=== PATIENT | female | born 1935 | race Caucasian/White ===

== ENCOUNTER 2017-08-16 20:44 | Inpatient (IN) | payer MEDICARE, MEDICAID ==
[~2017-08-16] VITALS: Ht 157.5 cm; Wt 50.8 kg
--- NOTE | 2017-08-16 20:51 | NUR ---
PT TO ER BED 9. PT CLAIRE FROM [facility] C/O "UTI S/S". PT PLACED IN GOWN AND ON STATEMENT SERVICES REPRESENTATIVE. VSS/RESP EVEN UNLABORED/NAD NOTED/SKIN WARM AND DRY/DENIES N-V-D/ AFEBRILE/AOX4. AWAITING MD MENDEZ.
--- NOTE | 2017-08-16 20:55 | NUR ---
LAB AT BEDSIDE TO DRAW.
--- NOTE | 2017-08-16 21:04 | NUR ---
URINE SPECIMEN OBTAINE AND SENT TO THE LAB.
[2017-08-16 21:17] LABS: BASOPHILS # (AUTO) 0.1 /CMM (0.0-0.2); EOSINOPHILS # (AUTO) 0.1 /CMM (0.0-0.7); LYMPHOCYTES # (AUTO) 2.1 /CMM (0.8-4.8); PLATELET COUNT (AUTO) 300 /CMM (150-450); RDW COEFFICIENT OF VARIATION 13.8 (11.5-15.0)
[2017-08-16 21:20] LABS: BASOPHILS % (AUTO) 0.7 % (0.0-2.0); EOSINOPHILS % (AUTO) 0.9 % (0.0-6.0); HEMATOCRIT 37 % (33-45); LYMPHOCYTES % (AUTO) 19.2 % (20.0-44.0); MEAN CORPUSCULAR HEMOGLOBIN 33 PG (26.0-33.0); MEAN CORPUSCULAR HGB CONC 35 g/dl (31.0-36.0); MEAN CORPUSCULAR VOLUME 93 fL (82-100); MONOCYTES % (AUTO) 8.6 % (2.0-12.0); NEUTROPHILS # (AUTO) 7.8 /CMM (1.8-8.9); NEUTROPHILS % (AUTO) 70.6 % (43.0-81.0); RED BLOOD CELL COUNT(AUTO) 3.96 MIL/uL (4.0-5.2); WHITE BLOOD COUNT (AUTO) 11.1 K/uL (4.3-11.0)
[2017-08-16 21:27] LABS: APPEARANCE,URINE Clear (CLEAR); BILIRUBIN,URINE Negative (NEGATIVE); BLOOD, URINE Moderate Ery/uL (NEGATIVE); COLOR,URINE Yellow (YELLOW); KETONES,URINE 15 (NEGATIVE); LEUKOCYTE ESTERASE ,URINE Large (NEGATIVE); NITRITE, URINE Positive (NEGATIVE); PH,URINE 5.5 (5.0-8.0); PROTEIN,URINE 100 mg/dl (NEGATIVE); UGLUCOSE Negative (NEGATIVE); UROBILINOGEN,URINE 0.2 EU/dL (0.2)
[2017-08-16] MEDS ORDERED: IV NS 0.9% 500 ML BAG IV ONE (21:30)
[2017-08-16 21:32] LABS: INR 1.05 (0.85-1.15)
[2017-08-16 21:39] LABS: BACTERIA,URINE Many /HPF (None Seen); RBC,URINE 21-50 /HPF (0-2); SQUAMOUS EPITHELIAL CELL,UR Few /HPF (None Seen); WBC,URINE TOO NUMEROUS TO COUN /HPF (0-3)
[2017-08-16 21:39] LABS: CALCIUM, SERUM 8.6 mg/dL (8.5-10.1); CARBON DIOXIDE 27 mmol/L (21-32); CHLORIDE 103 mmol/L (98-107); CREATININE 0.9 mg/dL (0.6-1.3); GLUCOSE 102 mg/dL (74-106); POTASSIUM 3.2 mmol/L (3.5-5.1); SODIUM SERUM 140 mmol/L (136-145); UREA NITROGEN, BLOOD 12 mg/dL (7-18)
[2017-08-16 21:45] LABS: ALANINE AMINOTRANSFERASE 15 U/L (12-78); ALBUMIN 3.4 g/dL (3.4-5.0); ALKALINE PHOSPHATASE 81 U/L (46-116); ASPARTATE AMINOTRANSFERASE 29 U/L (15-37); BILIRUBIN,DIRECT 0.2 mg/dL (0.0-0.2); BILIRUBIN,TOTAL 0.6 mg/dL (0.2-1.0); TOTAL PROTEIN, SERUM 7.7 g/dL (6.4-8.2); TROPONIN I 0.085 ng/mL (0.00-0.056)
[2017-08-16] MEDS ORDERED: CEFTRIAXONE 1 G VIAL ONE (21:51)
[2017-08-16] MEDS ORDERED: CEFTRIAXONE 1GM BAG (ER ONLY) 50 ML IV ONE (22:00)
[2017-08-16] MEDS ORDERED: ACETAMINOPHEN 650 MG/SUPP.RECT RC PRN (22:00)
[2017-08-16] MEDS ORDERED: Z GUARD REMEDY 2 OZ OINT TP PRN (22:00)
[2017-08-16] MEDS ORDERED: ONDANSETRON HCL/PF 4 MG/2 ML VIAL IVP PRN (22:00)
[2017-08-16] MEDS ORDERED: HALOPERIDOL LACTATE INJ 5 MG/ML VIAL IM ONE (22:30)
--- NOTE | 2017-08-16 23:27 | NUR ---
report given to dain aguilar for continuation of care.
--- NOTE | 2017-08-16 23:32 | NUR ---
PT TRANSFERED TO [facility] WITH RN AND EMT.
--- NOTE | 2017-08-16 23:40 | NUR ---
RN ADMITTING NOTES RECEIVED REPORT FROM MANAGER CONTINUOUS IMPROVEMENT CLARISSA. Pt ARRIVED TO THE FLOOR VIA GURNEY, WAS ABLE TO AMBULATE TO THE ROOM BED IN 327-2 WITH A STEADY GAIT. NO S/S OF ACUTE DISTRESS OR SOB NOTED. Pt IS A/OX2-3, Pt DID NOT KNOW THE NAME OF THE HOSPITAL BUT WAS AWARE THAT SHE WAS SENT TO A HOSPITAL. SHE IS AWARE OF THE CURRENT YEAR 2017, BUT Pt IS ACTIVELY SPEAKING TO ANOTHER PERSON IN THE ROOM WHEN NOBODY IS NEXT TO HER. I WITNESSED HER HAVING A CONVERSATION OUT LOAD; WHEN I STEPPED OUT OF THE ROOM AND CAME BACK IN, I CAN HEAR THE Pt HAVING A CONVERSATION OUT LOUD, WHEN I ASKED WHO SHE IS SPEAKING WITH SHE SAID THAT SHE WAS SPEAKING WITH HER SON AND WHEN I ASKED HER HOW SHE WAS SPEAKING WITH HIM, SHE SAID THROUGH THE MONITOR OR TELEPHONE, BUT THERE WAS NO TELEPHONE NEAR HER. POSSIBLE SIGNS OF SCHIZOPHRENIA, WILL SEE IF PSYCH CONSULT IS NEEDED. IV ACCESS ON R WRIST#20G. Pt IS VERBAL, AND ABLE TO MAKE NEEDS KNOWN. SAFETY MEASURES IN PLACE. BED LOW, LOCKED, HOB ELEVATED, SIDE RAILS UP, CALL LIGHT AND BEDSIDE TABLE WITHIN REACH, AND BED ALARM ON. WILL CONTINUE TO MONITOR Pt THROUGHOUT THE NIGHT FOR SAFETY.
[2017-08-17] MEDS: IV NS 0.9% 1,000 ML IV PRN (00:03)
[2017-08-17] MEDS: ENOXAPARIN SODIUM 40 MG/0.4 ML DISP.SYRIN SQ SCH ×2 (00:17→22:47)
[2017-08-17 00:28] VITALS: BP 136/78
--- NOTE | 2017-08-17 05:32 | NUR ---
RT NOTES- PT REFUSED EKG. NO DISTRESS NOTED. RN NOTIFED. WILL CONT TO FOLLOW UP.
--- NOTE | 2017-08-17 06:50 | NUR ---
RN CLOSING NOTES NO SIGNIFICANT CHANGES IN Pt's CONDITION. Pt REMAINS IN STABLE CONDITION. NO S/S OF ACUTE DISTRESS OR SOB NOTED. ALL NEEDS MET AND ATTENDED TO. SAFETY MEASURES IN PLACE. WILL ENDORSE TO DAYSHIFT RN FOR Pt's YANELIS.
--- NOTE | 2017-08-17 07:20 | NUR ---
RN NOTES: PATIENT RESTING IN BED. NONLABORED BREATHING NOTED ON ROOM AIR. NO SIGNS OF DISTRESS. PATIENT AOX2-3 DENIES PAIN, NO FACIAL GRIMACING. PATIENT AFIB 83 ON TELE MONITOR. PATIENT EDUCATED LAST PATTERN GRADER LIGHT USAGE, VERBALIZES UNDERSTANDING. BED IN LOWEST LOCKED POSITION. CALL LIGHT WITHIN REACH. IV ON RIGHT WRIST PATENT AND INTACT
[2017-08-17 07:23] LABS: BASOPHILS % (AUTO) 0.3 % (0.0-2.0); EOSINOPHILS # (AUTO) 0.2 /CMM (0.0-0.7); EOSINOPHILS % (AUTO) 2.2 % (0.0-6.0); HEMATOCRIT 35 % (33-45); HEMOGLOBIN 12.1 g/dL (11.5-14.8); LYMPHOCYTES # (AUTO) 3.1 /CMM (0.8-4.8); LYMPHOCYTES % (AUTO) 31.7 % (20.0-44.0); MEAN CORPUSCULAR HEMOGLOBIN 33 PG (26.0-33.0); MEAN CORPUSCULAR HGB CONC 34 g/dl (31.0-36.0); MEAN CORPUSCULAR VOLUME 96 fL (82-100); MONOCYTES # (AUTO) 0.8 /CMM (0.1-1.30); MONOCYTES % (AUTO) 8.5 % (2.0-12.0); NEUTROPHILS # (AUTO) 5.6 /CMM (1.8-8.9); NEUTROPHILS % (AUTO) 57.3 % (43.0-81.0); PLATELET COUNT (AUTO) 275 /CMM (150-450); RDW COEFFICIENT OF VARIATION 14.8 (11.5-15.0); RED BLOOD CELL COUNT(AUTO) 3.71 MIL/uL (4.0-5.2); WHITE BLOOD COUNT (AUTO) 9.7 K/uL (4.3-11.0)
[2017-08-17 07:40] LABS: CHOLESTEROL 138 mg/dL (<200); HDL CHOLESTEROL 53 mg/dL (40-60); LDL 73 mg/dL (0-99); TRIGLYCERIDES 97 mg/dL (30-150)
[2017-08-17 07:51] LABS: CALCIUM, SERUM 8.7 mg/dL (8.5-10.1); CARBON DIOXIDE 29 mmol/L (21-32); CHLORIDE 105 mmol/L (98-107); CREATININE 0.8 mg/dL (0.6-1.3); GLUCOSE 97 mg/dL (74-106); PHOSPHORUS 3.2 mg/dL (2.5-4.9); SODIUM SERUM 142 mmol/L (136-145); UREA NITROGEN, BLOOD 8 mg/dL (7-18)
[2017-08-17 08:00] VITALS: BP 138/78
[2017-08-17] MEDS ORDERED: METO25TA20 PO (08:00)
[2017-08-17] MEDS ORDERED: PANT40TA2 PO (08:00)
[2017-08-17] MEDS ORDERED: ATOR40TA PO (08:00)
[2017-08-17] MEDS ORDERED: MULT-447 PO (08:00)
[2017-08-17] MEDS ORDERED: MAGN400O6 PO (08:00)
[2017-08-17] MEDS ORDERED: LORA0.5T PO (08:00)
[2017-08-17] MEDS ORDERED: TRAZ-144 PO (08:00)
[2017-08-17] MEDS ORDERED: MIRT15TA7 PO (08:00)
[2017-08-17] MEDS ORDERED: DOCU-141 PO (08:00)
[2017-08-17] MEDS ORDERED: ACET-2605 PO (08:00)
[2017-08-17] MEDS ORDERED: ACET-868 PO (08:00)
[2017-08-17] MEDS ORDERED: APIX2.5T PO (08:00)
[2017-08-17] MEDS ORDERED: LOSA25TA13 PO (08:00)
[2017-08-17] MEDS ORDERED: QUET25TA PO (08:00)
[2017-08-17] MEDS ORDERED: FURO-145 PO (08:00)
[2017-08-17] MEDS ORDERED: ASPI-1169 PO (08:00)
[2017-08-17] MEDS ORDERED: DONE10TA11 PO (08:00)
[2017-08-17] MEDS: PANTOPRAZOLE 40 MG VIAL IV SCH (08:14)
--- NOTE | 2017-08-17 09:58 | NUR ---
RN NOTES: DR ABARCA ORDERED A REGULAR DIET
[2017-08-17] MEDS ORDERED: POTASSIUM CHLORIDE 20 MEQ POWDER PACKET PO SCH (10:30)
--- NOTE | 2017-08-17 11:29 | NUR ---
RN NOTES: k 20 MEQ WASTED. PATIENT REFUSING.
[2017-08-17] MEDS: POTASSIUM CL. PREMIX PERIPHER. 50 ML IV SCH ×4 (13:00→15:00)
[2017-08-17] MEDS: HALOPERIDOL 1 MG TABLET PO SCH ×2 (13:53→16:30)
[2017-08-17] MEDS: BENZTROPINE MESYLATE (1 MG) 1 MG TABLET PO SCH ×2 (13:54→16:30)
--- NOTE | 2017-08-17 14:59 | NUR ---
RN NOTES: PATIENT REFUSING K PLACEMENT VIA IV EARLIER. PATIENT PULLED OUT IV LINE 20 GAGUE. ANOTHER IV LINE STARTED ON LEFT HAND GAUGE 22 PATENT AND INTACT. PATIENT AGREED TO IV REPLACEMENT NOW
[2017-08-17 16:00] VITALS: BP 130/71
--- NOTE | 2017-08-17 16:27 | NUR ---
RN NOTES: PATIENT NOTED ATTEMPTING TO REMOVE IV LINE, STATING "I DONT WANT IT' PATIENT EDUCATED AT LENGTH BY STAFF WE[employer] FAMILY [employer]ERS. THROUGHOUT SHIFT, PATIENT REFUSED TABLET, POWDER WELL IV FORM OF POTASSIUM. DR ABARCA NOTIFIED AND AWARE OF PATIENT REFUSING MEDICATIONS, ECHO, AND POTASSIUM REPLACEMENT.
--- NOTE | 2017-08-17 16:30 | NUR ---
RN NOTES: PATIENT REFUSED COGENTIN AND HALDOL. PATIENT STATING THAT " I WILL GET MAD IF YOU KEEP EXPLAINING TO ME TO TAKE IT" BENEFITS AND RISKS EXPLAINED TO PATIENT AT LENGTH. PATIENT NOW CALM. NO AGITATION NOTED. NONLABORED BREATHING NOTED ON ROOM AIR. NO FACIAL GRIMACING. PATIENT STATED " I WANT TO REST"
--- NOTE | 2017-08-17 18:48 | NUR ---
RN NOTES: PATIENT REFUSED WOUND CARE. BENEFITS AND RISKS EXPLAINED, PATIENT RESTING IN BED. NO FACIAL GRIMACING. NO AGITATION. NO SIGNS OF DISTRESS NOTED. NO SIGNS OF ANXIOUSNESS NOTED
--- NOTE | 2017-08-17 19:16 | NUR ---
RN NOTES: PATIENT REFUSING DINNER, 1 BOX OF ORANGE CONSUMED AT DINNER.
--- NOTE | 2017-08-17 19:30 | NUR ---
RN NOTES: PATIENT RESTING IN BED. NONLABORED BREATHING NOTED ON ROOM AIR. NO SIGNS OF DISTRESS. PATIENT AOX2-3 DENIES PAIN, NO FACIAL GRIMACING. PATIENT EDUCATED LINE TESTER LIGHT USAGE, VERBALIZES UNDERSTANDING. BED IN LOWEST LOCKED POSITION. CALL LIGHT WITHIN REACH. IV ON LEFT HAND 22, REFUSING HYDRATION AT THE MOMENT. BENEFITS AND RISKS EXPLAINED AT LENGTH. PATIENT DENIES CHEST PAIN. ENDORSED TO NEXT SHIFT
--- NOTE | 2017-08-17 19:50 | NUR ---
RN OPENING NOTES RECEIVED REPORT FORM JONES SEGAL. FOUND Pt AWAKE, RESTING IN BED. NO S/S OF ACUTE DISTRESS OR SOB NOTED. Pt IS A/OX2-3, WITH AUDITORY HALLUCINATIONS. IV ACCESS ON RWRIST #20G. CURRENTLY REFUSING IVF DURING DAYSHIFT. WILL TRY TO TALK TO Pt AGAIN AND RE-EDUCATE Pt FOR THE NEED OF THE IVF. Pt ALSO REFUSED ECHO, REFUSED POTASSIUM REPLACEMENT, AND REFUSED THE MRSA SWAB DURING THE DAYSHIFT. WILL TRY TO RE-EDUCATE THE Pt AND SEE IF Pt WILL AGREE TO THE ABOVE TREATMENTS. SAFETY MEASURES IN PLACE. BED LOW, LOCKED, HOB ELEVATED, SIDE RAILS UP, CALL LIGHT AND BEDSIDE TABLE WITHIN REACH. WILL CONTINUE TO MONITOR Pt THROUGHOUT THE NIGHT FOR SAFETY.
[2017-08-17 20:00] VITALS: BP 100/45
[2017-08-17] MEDS: CEFTRIAXONE 1 G in IV NS 0.9% 50 ML IV SCH (22:47)
[2017-08-18] MEDS: PANTOPRAZOLE 40 MG VIAL IV SCH (06:22)
--- NOTE | 2017-08-18 06:50 | NUR ---
RN CLOSING NOTES NO SIGNIFICANT CHANGES IN Pt's CONDITION. Pt REMAINS IN STABLE CONDITION. NO S/S OF ACUTE DISTRESS OR SOB NOTED DURING THE NIGHT. ALL NEEDS MET AND ATTENDED TO. SAFETY MEASURES IN PLACE. WILL ENDORSE TO DAYSHIFT RN FOR Pt's YANELIS.
--- NOTE | 2017-08-18 07:45 | NUR ---
MS RN OPENING NOTE RECEIVED BEDSIDE REPORT ON THE PATIENT. PATIENT IS A/O X3, AWAKE AND RESPONSIVE IN BED.PATIENT PRESENTS WITH POSITIVE AUDITORY HALLUCINATIONS AND STATES THAT SHE IS TALKING TO HER VOICES ALL THE TIME. PSYCHIATRIC CONSULT COMPLETED. PRIMARY HOSPITALIST AWARE. BED IS LOCKED, IN LOWEST POSITION, SIDE RIALS UP X3, BED ALARM IS ON. PATIENT STATES SHE IS ABLE TO AMBULATE WITH A WALKER, BUT IS CURRENTLY ON BED REST. INDEPENDENT WITH BED MOBILITY. PRESENTS WITH SACRAL WOUND. DENIES PAIN/DISCOMFORT AT THIS TIME. CURRENTLY ON ROOM AIR SPO2 95%. ALL NEEDS ARE MET AT THIS TIME. CALL LIGHT WITHIN REACH. EDUCATED TO USE THE CALL LIGHT TO CALL FOR ASSISTANCE. PATIENT VERBALIZED UNDERSTANDING. WILL CONTINUE TO ASSESS/MONITOR THROUGHOUT THE SHIFT.
[2017-08-18 08:00] VITALS: BP 134/88
--- NOTE | 2017-08-18 09:10 | NUR ---
EKG AT THE BEDSIDE.
--- NOTE | 2017-08-18 09:15 | NUR ---
RT EKG DONE PER MD ORDER. EKG REPORTED TO DR. ABRAMS. RN AWARE.
[2017-08-18] MEDS: BENZTROPINE MESYLATE (1 MG) 1 MG TABLET PO SCH ×3 (09:31→17:51)
[2017-08-18] MEDS: HALOPERIDOL 1 MG TABLET PO SCH ×3 (09:32→17:51)
--- NOTE | 2017-08-18 09:33 | NUR ---
POTASSIUM DUE IS NOT ON THE FLOOR. CALLED PHARMACY TO DELIVER. WILL ADMINISTER ONCE AVAILABLE
--- NOTE | 2017-08-18 09:34 | NUR ---
PATIENT AGREED TO TAKE MEDICATIONS DUE. STATED "THE VOICE" TOLD HER ITS OK TO TAKE MEDICATIONS NOW.
--- NOTE | 2017-08-18 09:49 | NUR ---
DR JAVIER AT THE BEDSIDE. PREVIOUS MEDICAL RECORDS PROVIDED TO DR JAVIER
--- NOTE | 2017-08-18 09:55 | NUR ---
PT AT THE BEDSIDE.
--- NOTE | 2017-08-18 10:20 | NUR ---
PER PT PATIENT IS AMBULATORY WITH REKHA ZAYAS. PRESENTS WITH STEADY GAIT.
[2017-08-18] MEDS: POTASSIUM CL. PREMIX PERIPHER. 50 ML IV SCH ×6 (10:36→17:50)
[2017-08-18] MEDS: LORAZEPAM 0.5 MG TABLET PO SCH ×3 (11:55→17:52)
[2017-08-18] MEDS: DIGOXIN INJ 0.5 MG/2 ML AMPUL IV SCH ×2 (11:59→17:56)
[2017-08-18 12:00] VITALS: BP 137/71
--- NOTE | 2017-08-18 12:05 | NUR ---
PATIENT PLACED ON MONITOR FOR OBSERVATION. EXTERNAL MONITOR READING AFIB HR 123 DIGOXIN ADMINISTERED ORDERED. DIXOXIN DROWN FROM THE AMPULE USING A FILTERED NEEDLE. PATIENT'S HR ON EXTERNAL MONITOR AFIB HR 126.
--- NOTE | 2017-08-18 12:55 | NUR ---
CAME TO ADMINISTER NEXT SCHEDULED POTASSIUM BAG. PATIENT REFUSED STATING SHE HAS GOTTEN ENOUGH POTASSIUM. WILL RE-ATTEMPT LATER.
--- NOTE | 2017-08-18 13:38 | NUR ---
CAME BACK TO ADMINISTER POTASSIUM. PATIENT AGREED TO RECEIVE THE DOSE.
--- NOTE | 2017-08-18 13:40 | NUR ---
PATIENT IS IN BED. SPEKING LAUDLY AND ARGUING. NO ONE ELSE IN THE ROOM. RN ASKED THE PATIETN WHO IS SHE SPEAKING TO, AND THE PATIENT ANSWERED THAT HER BROTHER IS VISITING HER AND HE IS UPSETTING HER. PATIENT IS REORIENTED TO REALITY. PATIENT STATED HER BROTHER IS THERE AND RN CANNOT SEE HIM BECAUSE HE IS A GHOST. HALDOL AND ATIVAN ADMINISTERED CHEDULED. EXTERNAL MONITOR READING 96. DENIES PAIN/DISCOMFORT.
[2017-08-18 16:00] VITALS: BP 135/79
--- NOTE | 2017-08-18 19:02 | NUR ---
MS RN CLOSING NOTE PATIENT IS A/O X2, FORGETFUL AND CONFUSED. PATIENT PRESENTS WITH POSITIVE AUDITORY HALLUCINATIONS. PATIENT STATES THAT SHE IS SPEAKING TO HER BROTHER, AND THAT THE BROTHER IS SPEAKING BACK TO HER. PATIENT IS ALONE IN THE ROOM. AWAKE AND RESPONSIVE IN BED. BED IS LOCKED, IN LOWEST POSITION, SIDE RIALS UP X3, BED ALARM IS ON. INDEPENDENT WITH BED MOBILITY. PATIENT IS AMBULATORY WITH STEADY GAIT. REQUIRES STANDBY ASSIST PER PT EVALUATION. PRESENTS WITH SACRAL ULCER. Z-GUARD APPLIED AND PROTECTED WITH MEPILEX. DENIES PAIN AT THIS TIME. CURRENTLY ON ROOM AIR SATURATING 98%. ALL DUE MEDS ADMINISTERED. REMINDED THE PATIENT TO TURN AND REPOSITION EVERY 2 HRS AND NEEDED FOR COMFORT AND MAINTENANCE OF FUNCTIONAL ALIGNMENT OF THE LIMBS. ALL NEEDS ARE MET AT THIS TIME. CALL LIGHT WITHIN REACH. EDUCATED TO USE THE CALL LIGHT TO CALL FOR ASSISTANCE. PATIENT VERBALIZED UNDERSTANDING. WILL ENDORSE TO THE PEANUT BUTTER MAKER NURSE FOR YANELIS.
--- NOTE | 2017-08-18 19:35 | NUR ---
MS RN OPENING NOTES RECEIVED PATIENT IN BED, ALERT ORIENTED X3. ON ROOM AIR. RESPIRATIONS ARE EVEN AND UNLABORED. NO APPARENT DISTRESS OR DISCOMFORT NOTED AT THIS TIME. PATIENT DENIES SOB AND PAIN AT THIS TIME. LEFT HAND IV WITH IV POTASSIUM AND NS RUNNING AT THIS TIME. PATIENT IS ON BED REST BUT IS ABLE TO AMBULATE WITH A WALKER, INDEPENDENT WITH BED MOBILITY. PATIENT KEPT CLEAN AND COMFORTABLE, ALL NEEDS ATTENDED. PSYCH CONSULT WAS COMPLETED DUE TO PATIENT PRESENTING WITH AUDITORY HALLUCINATIONS AND STATING SHE TALKS TO THE VOICES ALL THE TIME. SAFETY MEASURES IN PLACE. BED IS IN LOW LOCKED POSITION, SIDE RAILS UPX3, ALARM ON. CALL LIGHT WITHIN EASY REACH. WILL CONTINUE TO MONITOR.
[2017-08-18 20:00] VITALS: BP 122/80
[2017-08-18] MEDS: CEFTRIAXONE 1 G in IV NS 0.9% 50 ML IV SCH (21:50)
--- NOTE | 2017-08-18 22:00 | NUR ---
PATIENT ALERT ORIENTED X2. REPORTS BEING TIRED AND WANTING TO SLEEP. DOES NOT HAVE ANY SIGNS OF HALLUCINATIONS AT THIS TIME.
[2017-08-19] MEDS: ENOXAPARIN SODIUM 40 MG/0.4 ML DISP.SYRIN SQ SCH ×2 (00:18→22:46)
[2017-08-19] MEDS: DIGOXIN INJ 0.5 MG/2 ML AMPUL IV SCH (00:20)
[2017-08-19] MEDS: IV NS 0.9% 1,000 ML IV PRN (01:50)
--- NOTE | 2017-08-19 04:05 | NUR ---
PATIENT IN BED SLEEPING COMFORTABLY.
[2017-08-19 07:30] LABS: BASOPHILS # (AUTO) 0.1 /CMM (0.0-0.2); BASOPHILS % (AUTO) 0.6 % (0.0-2.0); EOSINOPHILS # (AUTO) 0.3 /CMM (0.0-0.7); EOSINOPHILS % (AUTO) 3.8 % (0.0-6.0); HEMATOCRIT 38 % (33-45); HEMOGLOBIN 12.8 g/dL (11.5-14.8); LYMPHOCYTES # (AUTO) 2.8 /CMM (0.8-4.8); LYMPHOCYTES % (AUTO) 33.9 % (20.0-44.0); MEAN CORPUSCULAR HEMOGLOBIN 33 PG (26.0-33.0); MEAN CORPUSCULAR HGB CONC 34 g/dl (31.0-36.0); MEAN CORPUSCULAR VOLUME 96 fL (82-100); MONOCYTES # (AUTO) 0.9 /CMM (0.1-1.30); MONOCYTES % (AUTO) 10.7 % (2.0-12.0); NEUTROPHILS # (AUTO) 4.3 /CMM (1.8-8.9); PLATELET COUNT (AUTO) 280 /CMM (150-450); RDW COEFFICIENT OF VARIATION 14.8 (11.5-15.0); RED BLOOD CELL COUNT(AUTO) 3.93 MIL/uL (4.0-5.2); WHITE BLOOD COUNT (AUTO) 8.4 K/uL (4.3-11.0)
[2017-08-19 07:36] LABS: CALCIUM, SERUM 8.6 mg/dL (8.5-10.1); CARBON DIOXIDE 25 mmol/L (21-32); CHLORIDE 105 mmol/L (98-107); CREATININE 0.6 mg/dL (0.6-1.3); GLUCOSE 89 mg/dL (74-106); MAGNESIUM 1.8 mg/dL (1.8-2.4); POTASSIUM 3.3 mmol/L (3.5-5.1); SODIUM SERUM 141 mmol/L (136-145); UREA NITROGEN, BLOOD 3 mg/dL (7-18)
--- NOTE | 2017-08-19 07:48 | NUR ---
MS RN CLOSING NOTE PATIENT IN BED, ALERT ORIENTED X2. ON ROOM AIR. RESPIRATIONS ARE EVEN AND UNLABORED. NO APPARENT DISTRESS OR DISCOMFORT NOTED AT THIS TIME. PATIENT DENIES SOB AND PAIN AT THIS TIME. LEFT HAND IV WITH NS RUNNING AT THIS TIME. PATIENT IS ON BED REST BUT IS ABLE TO AMBULATE WITH A WALKER, INDEPENDENT WITH BED MOBILITY. PATIENT KEPT CLEAN AND COMFORTABLE, ALL NEEDS ATTENDED. PRESENTS WITH FREQUENT AUDITORY HALLUCINATIONS. SAFETY MEASURES IN PLACE. BED IS IN LOW LOCKED POSITION, SIDE RAILS UPX3, ALARM ON. CALL LIGHT WITHIN EASY REACH. WILL ENDORSE TO AM NURSE FOR CONTINUITY OF CARE.
--- NOTE | 2017-08-19 07:48 | NUR ---
MS/RN OPENING NOTE PATIENT IN BED IN STABLE CONDITION. A/O X 1-2, WITH EPISODES OF CONFUSION, FORGETFULNESS AND AUDITORY HALLUCINATION. NO SIGNS OF ACUTE DISTRESS. NO COMPLAIN OF PAIN OR DISCOMFORT. ALL NEEDS ATTENDED TO. CALL LIGHT WITHIN REACH. WILL CONTINUE TO MONITOR TO ENSURE SAFETY.
[2017-08-19 08:00] VITALS: BP 144/80
[2017-08-19] MEDS: HALOPERIDOL 1 MG TABLET PO SCH ×2 (08:48→12:28)
[2017-08-19] MEDS: PANTOPRAZOLE 40 MG VIAL IV SCH (08:48)
[2017-08-19] MEDS: LORAZEPAM 0.5 MG TABLET PO SCH ×3 (08:50→16:44)
[2017-08-19] MEDS: BENZTROPINE MESYLATE (1 MG) 1 MG TABLET PO SCH ×3 (08:51→16:44)
[2017-08-19] MEDS ORDERED: POTASSIUM CHLORIDE 20 MEQ TAB.PRT.SR PO SCH (11:00)
--- NOTE | 2017-08-19 12:18 | NUR ---
MS/RN SPOKE WITH DR JUAN ANTONIO GRAVES SPOKE WITH DR JUAN ANTONIO GRAVES AND INFORMED PATIENT UA WITH CS POSITIVE FOR KLEBSIELLA PNEUMONIAE, CURRENTLY ON ROCEPHIN IV ATB. ALSO REQUESTED TO DO MED RECON PER PHARMACY.
[2017-08-19] MEDS: NS 0.9% IV SCH ×4 (12:28→15:32)
[2017-08-19] MEDS: POTASSIUM CHLORIDE IV SCH ×4 (12:28→15:32)
[2017-08-19] MEDS ORDERED: LORAZEPAM 0.5 MG TABLET PO PRN (13:30)
[2017-08-19 16:00] VITALS: BP 135/86
[2017-08-19] MEDS: METOPROLOL TARTRATE 25 MG TABLET PO SCH (16:44)
[2017-08-19] MEDS ORDERED: HALOPERIDOL 1 MG TABLET PO SCH ×2 (17:00→20:00)
--- NOTE | 2017-08-19 19:07 | NUR ---
MS/RN CLOSING NOTE PATIENT IN BED IN STABLE CONDITION. A/O X 2-3, WITH EPISODES OF AUDITORY AND VISUAL HALLUCINATION. NO SIGNS OF ACUTE DISTRESS. NO COMPLAIN OF PAIN OR DISCOMFORT. ALL NEEDS ATTENDED TO. CALL LIGHT WITHIN REACH. WILL ENDORSE TO NEXT SHIFT FOR CONTINUITY OF CARE.
--- NOTE | 2017-08-19 19:40 | NUR ---
RN OPENING NOTES PATIENT IS IN BED, ALERT AND ORIENTED X2-3, WITH AUDITORY AND VISUAL HALLUCINATIONS. NO PAIN OR DISCOMFORT NOTED. VS STABLE. RESPIRATIONS EVEN AND UNLABORED. NO SOB NOTED. IV ACCESS ON RIGHT FA PATENT AND INTACT, NO REDNESS OR INFILTRATION NOTED. BED IN LOW AND LOCKED POSITION, SIDE RAILS X2. CALL LIGHT WITHIN EASY REACH. WILL CONTINUE TO MONITOR AND ASSESS DURING THE SHIFT.
[2017-08-19 20:00] VITALS: BP 121/65
[2017-08-19] MEDS: CEFTRIAXONE 1 G in IV NS 0.9% 50 ML IV SCH (21:38)
[2017-08-19] MEDS ORDERED: QUETIAPINE FUMARATE 25 MG TABLET PO SCH (22:00)
[2017-08-19] MEDS ORDERED: TRAZODONE 50 MG TABLET PO SCH (22:00)
[2017-08-19] MEDS ORDERED: MIRTAZAPINE 15 MG TABLET PO SCH (22:00)
[2017-08-19] MEDS ORDERED: ATORVASTATIN 40 MG TABLET PO SCH (22:00)
--- NOTE | 2017-08-20 06:39 | NUR ---
RN CLOSING NOTES PATIENT IS SLEEPING IN BED, EASY TO AROUSE, ALERT AND ORIENTED X2-3. NO PAIN OR DISCOMFORT NOTED. VS STABLE. RESPIRATIONS EVEN AND UNLABORED. NO SOB NOTED. IV ACCESS ON RIGHT FA PATENT AND INTACT, NO REDNESS OR INFILTRATION NOTED. ALL NEEDS ARE MET AND MEDICATIONS GIVEN PER MD ORDER. BED IN LOW AND LOCKED POSITION, SIDE RAILS X2. CALL LIGHT WITHIN EASY REACH. WILL ENDORSE TO RN DAY SHIFT FOR YANELIS.
--- NOTE | 2017-08-20 07:30 | NUR ---
MS RN NOTES PATIENT RECEIVED RESTING INSIDE ROOM, SLEEPING, AROUSABLE THROUGH VERBAL AND TACTILE STIMULI. VERBALLY RESPONSIVE. ALERT AND ORIENTED, ABLE TO MAKE NEEDS KNOWN. PATIENT BREATHING EVEN AND UNLABORED. NO CHANGES IN LOC NOTED AT THIS TIME. PATIENT CALM AND RELAXED. WILL CONTINUE TO MONITOR. BILATERAL UPPER SIDE RAILS UP AND LOCKED. BED LOCKED AND IN LOW POSITION. CALL LIGHT WITHIN EASY REACH
[2017-08-20 08:31] VITALS: BP 140/84
[2017-08-20 08:32] VITALS: BP 124/67
[2017-08-20] MEDS ORDERED: PANTOPRAZOLE 40 MG TABLET.DR PO SCH (09:00)
[2017-08-20] MEDS ORDERED: LOSARTAN POTASSIUM 25 MG TABLET PO SCH (09:00)
[2017-08-20] MEDS ORDERED: FUROSEMIDE 20 MG TABLET PO SCH (09:00)
[2017-08-20] MEDS ORDERED: ASPIRIN 81 MG TAB.CHEW PO SCH (09:00)
[2017-08-20] MEDS ORDERED: DOCUSATE SODIUM 100 MG CAPSULE PO SCH (09:00)
[2017-08-20] MEDS ORDERED: DONEPEZIL 5 MG TABLET PO SCH (09:00)
[2017-08-20 09:16] VITALS: BP 140/84
[2017-08-20] MEDS: METOPROLOL TARTRATE 25 MG TABLET PO SCH (09:16)
[2017-08-20] MEDS: BENZTROPINE MESYLATE (1 MG) 1 MG TABLET PO SCH ×2 (09:17→12:53)
[2017-08-20] MEDS: LORAZEPAM 0.5 MG TABLET PO SCH ×2 (09:17→12:54)
[2017-08-20] MEDS ORDERED: LORA0.5T PO (11:12)
[2017-08-20] MEDS ORDERED: HALO1TAB5 PO (11:12)
[2017-08-20] MEDS ORDERED: CEPH-570 PO (11:28)
--- NOTE | 2017-08-20 12:15 | NUR ---
MS RN NOTES DAUGHTER (MEENA) PRESENT AT UNIT AND REQUESTED TO HAVE FILE PREVIOUSLY BROUGHT TO UNIT FROM APPOINTMENT FROM [facility]
--- NOTE | 2017-08-20 12:19 | NUR ---
MS RN NOTES PATIENT SEEN AND EXAMINED BY DR. JAVIER WITH NEW ORDERS FOR BMP AND MAGNESIUM LEVEL. ORDER NOTED AND CARRIED OUT
[2017-08-20] MEDS ORDERED: HALOPERIDOL 1 MG TABLET PO SCH (13:00)
[2017-08-20 13:20] LABS: CALCIUM, SERUM 9.2 mg/dL (8.5-10.1); CARBON DIOXIDE 27 mmol/L (21-32); CHLORIDE 103 mmol/L (98-107); CREATININE 0.7 mg/dL (0.6-1.3); GLUCOSE 101 mg/dL (74-106); MAGNESIUM 1.9 mg/dL (1.8-2.4); POTASSIUM 3.7 mmol/L (3.5-5.1); SODIUM SERUM 141 mmol/L (136-145); UREA NITROGEN, BLOOD 8 mg/dL (7-18)
[2017-08-20] MEDS ORDERED: POTASSIUM CHLORIDE 20 MEQ TAB.PRT.SR PO ONE (14:00)
--- NOTE | 2017-08-20 15:48 | NUR ---
MS RN NOTES PLACED CALL TO [facility] AND SPOKE WITH BONNY SEGAL AND GAVE REPORT
--- NOTE | 2017-08-20 15:56 | NUR ---
MS RN NOTES PATIENT TO BE PICKED UP BY [facility] UN[address]. PATIENT IN STABLE CONDITION. BREATHING EVEN AND UNLABORED. NO CHANGES IN LOC NOTED AT THIS TIME. PATIENT AFEBRILE, SKIN DRY AND WARM TO TOUCH. NO SOB OR ACUTE DISTRESS. PATIENT DENIES ANY PAIN OR DISCOMFORT. ALL BELONGINGS COMPLETE UPON LEAVING. NO REPORT OF MISSING BELONGINGS. INFORMATION PROVIDED TO reed press feeder.
--- NOTE | 2017-08-20 16:10 | NUR ---
MS RN NOTES PATIENT LEFT IN STABLE CONDITION. NO CHANGES IN LOC NOTED.
[2017-08-20] MEDS ORDERED: APIXABAN 2.5 MG TABLET PO SCH (17:00)
== END 2017-08-20 16:05 | DRG 280 ==
LOC: ER 20:47 → TELE 22:55 → MED 23:56 → TELE 08-17 07:17 → MED 08-17 09:50 → TELE-TD 08-18 11:49
DX: I21.A1 Myocardial infarction type 2 (principal); G93.41 Metabolic encephalopathy; L89.154 Pressure ulcer of sacral region, stage 4; N39.0 Urinary tract infection, site not specified; F05 Delirium due to known physiological condition; L89.322 Pressure ulcer of left buttock, stage 2; E87.6 Hypokalemia; L98.9 Disorder of the skin and subcutaneous tissue, unspecified; B96.5 Pseudomonas (aeruginosa) (mallei) (pseudomallei) as the cause of diseases classified elsewhere; I48.2 Chronic atrial fibrillation; I25.2 Old myocardial infarction; I70.0 Atherosclerosis of aorta; J44.9 Chronic obstructive pulmonary disease, unspecified; Z79.899 Other long term (current) drug therapy
CPT/HCPCS: 36415; 71045-TC; 80048-TC; 80061-TC; 80076-TC; 81000-TC; 83605-TC; 83735-TC; 84100-TC; 84443-TC; 84484-TC; 85025-TC; 85730-TC; 87040-TC; 87081-TC; 87086-TC; 87186-TC; 93307-TC; A4216; A4606; A6402; A6403; C9113; J0696; J1160; J1650; J3480; J7030; J7040; Z7610

== ENCOUNTER 2017-08-23 18:52 | Inpatient (IN) | payer MEDICARE, MEDICAID ==
[~2017-08-23] VITALS: Ht 157.5 cm; Wt 50.8 kg
[~2017-08-23 18:52] MED LIST: ACET-2605 PO; ACET-868 PO; APIX2.5T PO; ASPI-1169 PO; ATOR40TA PO; CEPH-570 PO; DOCU-141 PO; DONE10TA11 PO; FURO-145 PO; HALO1TAB5 PO; LORA0.5T PO; LOSA25TA13 PO; MAGN400O6 PO; METO25TA20 PO; MIRT15TA7 PO; MULT-447 PO; PANT40TA2 PO; QUET25TA PO; TRAZ-144 PO
--- NOTE | 2017-08-23 19:10 | NUR ---
BBPA FROM [facility], PER FACILITY PT IS DELUSIONAL, HEARING VOICES. PT IS AAOX4. RESP EVEN AND UNLBAORED. SKIN PINK AND WARM. NO S/S OF ACUTE DISTRESS NOTED. PT PLACED ON MONITOR AND POX. PT SAFETY AND COMFORT MEASURES IN PLACE. CALL LIGHT WITHIN REACH. MD BEDSIDE FOR EVAL.
--- NOTE | 2017-08-23 19:15 | NUR ---
PHLEBOTOMY BEDSIDE FOR BLOOD DRAW.
--- NOTE | 2017-08-23 19:15 | NUR ---
Daniel cantu in [facility] - 08/23/17 at 1922 by ALMAS PHLEBOTOMY BEDSIDE FOR EVAL.
[2017-08-23 19:21] LABS: BASOPHILS # (AUTO) 0.1 /CMM (0.0-0.2); BASOPHILS % (AUTO) 1.1 % (0.0-2.0); EOSINOPHILS # (AUTO) 0.3 /CMM (0.0-0.7); EOSINOPHILS % (AUTO) 3.8 % (0.0-6.0); HEMATOCRIT 35 % (33-45); HEMOGLOBIN 12.1 g/dL (11.5-14.8); LYMPHOCYTES # (AUTO) 2.7 /CMM (0.8-4.8); LYMPHOCYTES % (AUTO) 30.3 % (20.0-44.0); MEAN CORPUSCULAR HEMOGLOBIN 33 PG (26.0-33.0); MEAN CORPUSCULAR HGB CONC 35 g/dl (31.0-36.0); MEAN CORPUSCULAR VOLUME 95 fL (82-100); MONOCYTES # (AUTO) 0.8 /CMM (0.1-1.30); MONOCYTES % (AUTO) 9.1 % (2.0-12.0); NEUTROPHILS # (AUTO) 4.9 /CMM (1.8-8.9); NEUTROPHILS % (AUTO) 55.7 % (43.0-81.0); PLATELET COUNT (AUTO) 330 /CMM (150-450); RDW COEFFICIENT OF VARIATION 13.9 (11.5-15.0); RED BLOOD CELL COUNT(AUTO) 3.71 MIL/uL (4.0-5.2); WHITE BLOOD COUNT (AUTO) 8.8 K/uL (4.3-11.0)
--- NOTE | 2017-08-23 19:28 | NUR ---
PT PLACED ON BEDPAN, AWAITING TO COLLECT URINE SPECIMEN.
[2017-08-23 19:57] LABS: CALCIUM, SERUM 9.4 mg/dL (8.5-10.1); CARBON DIOXIDE 24 mmol/L (21-32); CHLORIDE 99 mmol/L (98-107); GLUCOSE 94 mg/dL (74-106); POTASSIUM 4.2 mmol/L (3.5-5.1); SODIUM SERUM 137 mmol/L (136-145); UREA NITROGEN, BLOOD 21 mg/dL (7-18)
[2017-08-23 20:00] LABS: APPEARANCE,URINE Clear (CLEAR); BILIRUBIN,URINE Negative (NEGATIVE); BLOOD, URINE Negative Ery/uL (NEGATIVE); COLOR,URINE Yellow (YELLOW); KETONES,URINE 15 (NEGATIVE); LEUKOCYTE ESTERASE ,URINE Trace (NEGATIVE); NITRITE, URINE Negative (NEGATIVE); PROTEIN,URINE Negative (NEGATIVE); UGLUCOSE Negative (NEGATIVE); UROBILINOGEN,URINE 0.2 EU/dL (0.2)
[2017-08-23 20:07] LABS: ALANINE AMINOTRANSFERASE 22 U/L (12-78); ALBUMIN 3.3 g/dL (3.4-5.0); ALCOHOL, BLOOD < 3 mg/dL (0-0); ALKALINE PHOSPHATASE 64 U/L (46-116); ASPARTATE AMINOTRANSFERASE 33 U/L (15-37); BILIRUBIN,DIRECT 0.1 mg/dL (0.0-0.2); BILIRUBIN,TOTAL 0.5 mg/dL (0.2-1.0); TOTAL PROTEIN, SERUM 7.4 g/dL (6.4-8.2)
[2017-08-23 20:08] LABS: ACETAMINOPHEN 0 ug/ml (10-30)
--- NOTE | 2017-08-23 20:36 | NUR ---
Patient is resting comfortably in bed with eyes closed. Easily aroused. VSS. Arcade given to pt.
[2017-08-23 20:37] LABS: BACTERIA,URINE Few /HPF (None Seen); RBC,URINE 0-2 /HPF (0-2); SQUAMOUS EPITHELIAL CELL,UR Few /HPF (None Seen)
--- NOTE | 2017-08-23 21:23 | NUR ---
Patient is resting comfortably in bed with eyes closed. Easily aroused. VSS.
--- NOTE | 2017-08-23 21:32 | NUR ---
GAVE REPORT TO CARMELO BANQUET SERVER ON CALL MANNY FOR YANELIS. PT BEING TRANSFERRED VIA WHEELCHAIR TO PSYCHIATRIC UNIT BY EMT.
--- NOTE | 2017-08-23 21:45 | NUR ---
ADMISSION NOTES: ADMITTED AN 82 Y/O FEMALE FROM [facility], ON 5[address] HOLD GD, BASED ON HOLD PATIENT IS DELUSIONAL, HEARS VOICES, REFUSED TO EAT, REFUSED TO TAKE MEDICATION, DISORGANIZED AND PARANOID. ADMITTING DX. OF PSYCHOSIS AND MEDICAL DX. DEMENTIA, METABOLIC ENCEPHALOPATHY, HYPERTENSION AND GERD. PATIENT ARRIVE FROM [facility] ER VIA WHEELCHAIR WITH 1 PERSON ASSIST. UPON FACE TO FACE EVALUATION, PATIENT APPEARED ALERT AND ORIENTED X 2, CALM, COOPERATIVE, WITH PERIODS OF CONFUSION, DELUSIONAL, DENIES SI, HI, AH, VH. NO SOB, NO ACUTE DISTRESS, BREATHING EVEN AND UNLABORED, DENIES PAIN AND DISCOMFORT, PATIENT REFUSED TO SIGN PAPER WORKS. HEAD TO TO ASSESSMENT DONE. PICTURE DONE. BELONGINGS INSPECTED AND PLACED IN HER LOCKED CABINET. NOTIFIED DAUGHTER. NOTIFIED DR. ROBINS TO RECONCILE MEDICATION. KEPT CLEAN, DRY AND COMFORTABLE, WILL CONTINUE TO MONITOR [id number] FOR SAFETY
[2017-08-23] MEDS ORDERED: ACETAMINOPHEN 325 MG TABLET PO PRN (23:00)
[2017-08-23] MEDS ORDERED: LORAZEPAM 0.5 MG TABLET PO PRN (23:00)
[2017-08-23] MEDS ORDERED: TEMAZEPAM 7.5 MG CAPSULE PO PRN (23:00)
[2017-08-23] MEDS ORDERED: MAGNESIUM HYDROXIDE 30 ML UDC PO PRN (23:00)
[2017-08-23] MEDS ORDERED: MAG HYDROX/AL HYDROX/SIMETH 30 ML UDC PO PRN (23:00)
[2017-08-24 00:56] VITALS: BP 103/64
[2017-08-24] MEDS ORDERED: Z GUARD REMEDY 2 OZ OINT TP PRN (01:30)
[2017-08-24 07:31] LABS: BASOPHILS % (AUTO) 0.7 % (0.0-2.0); EOSINOPHILS # (AUTO) 0.3 /CMM (0.0-0.7); EOSINOPHILS % (AUTO) 4.9 % (0.0-6.0); HEMATOCRIT 35 % (33-45); HEMOGLOBIN 11.9 g/dL (11.5-14.8); LYMPHOCYTES # (AUTO) 1.9 /CMM (0.8-4.8); LYMPHOCYTES % (AUTO) 29.1 % (20.0-44.0); MEAN CORPUSCULAR HEMOGLOBIN 33 PG (26.0-33.0); MEAN CORPUSCULAR HGB CONC 34 g/dl (31.0-36.0); MEAN CORPUSCULAR VOLUME 96 fL (82-100); MONOCYTES # (AUTO) 0.7 /CMM (0.1-1.30); MONOCYTES % (AUTO) 10.5 % (2.0-12.0); NEUTROPHILS # (AUTO) 3.5 /CMM (1.8-8.9); NEUTROPHILS % (AUTO) 54.8 % (43.0-81.0); PLATELET COUNT (AUTO) 286 /CMM (150-450); RDW COEFFICIENT OF VARIATION 15.4 (11.5-15.0); RED BLOOD CELL COUNT(AUTO) 3.59 MIL/uL (4.0-5.2); WHITE BLOOD COUNT (AUTO) 6.4 K/uL (4.3-11.0)
[2017-08-24] MEDS ORDERED: HALO0.5T4 PO (07:48)
[2017-08-24] MEDS ORDERED: LORA0.5T PO (07:48)
[2017-08-24] MEDS ORDERED: CEPH-570 PO (07:48)
[2017-08-24] MEDS ORDERED: BISA10SU8 RC (07:48)
[2017-08-24] MEDS ORDERED: NA P133E RC (07:48)
[2017-08-24] MEDS ORDERED: GEL100GE TD (07:48)
[2017-08-24] MEDS ORDERED: QUET25TA PO (07:50)
[2017-08-24 07:59] LABS: CHOLESTEROL 155 mg/dL (<200); HDL CHOLESTEROL 46 mg/dL (40-60); LDL 97 mg/dL (0-99); TRIGLYCERIDES 89 mg/dL (30-150)
[2017-08-24 08:00] VITALS: BP 118/77
[2017-08-24 08:00] LABS: ALANINE AMINOTRANSFERASE 17 U/L (12-78); ALKALINE PHOSPHATASE 60 U/L (46-116); ASPARTATE AMINOTRANSFERASE 29 U/L (15-37); BILIRUBIN,TOTAL 0.6 mg/dL (0.2-1.0); CALCIUM, SERUM 8.6 mg/dL (8.5-10.1); CARBON DIOXIDE 24 mmol/L (21-32); CHLORIDE 101 mmol/L (98-107); CREATININE 0.8 mg/dL (0.6-1.3); GLUCOSE 78 mg/dL (74-106); POTASSIUM 3.7 mmol/L (3.5-5.1); SODIUM SERUM 138 mmol/L (136-145); TOTAL PROTEIN, SERUM 6.9 g/dL (6.4-8.2); UREA NITROGEN, BLOOD 18 mg/dL (7-18)
[2017-08-24] MEDS: Z GUARD REMEDY 2 OZ OINT TP SCH (09:23)
[2017-08-24] MEDS ORDERED: BISACODYL SUPP (10 MG) 10 MG/SUPP.RECT SUPP.RECT RC PRN (11:30)
[2017-08-24] MEDS ORDERED: MAGNESIUM HYDROXIDE 30 ML UDC PO PRN (11:30)
[2017-08-24] MEDS ORDERED: ALBUTEROL FS 2.5 MG/3 ML VIAL.NEB NEB PRN (11:30)
[2017-08-24] MEDS ORDERED: ACETAMINOPHEN 325 MG TABLET PO PRN (11:30)
[2017-08-24] MEDS ORDERED: NA PHOS,M-B/NA PHOS,DI-BA 1 EA ENEMA RC PRN (11:30)
[2017-08-24] MEDS: HALOPERIDOL 1 MG TABLET PO SCH ×2 (12:42→16:51)
[2017-08-24] MEDS: BENZTROPINE MESYLATE (1 MG) 1 MG TABLET PO SCH ×2 (12:42→16:51)
[2017-08-24 16:00] VITALS: BP 130/71
[2017-08-24] MEDS: METOPROLOL TARTRATE 25 MG TABLET PO SCH (16:51)
[2017-08-24] MEDS: APIXABAN 2.5 MG TABLET PO SCH (17:44)
[2017-08-24 20:00] VITALS: BP 112/65
[2017-08-24] MEDS: TRAZODONE 50 MG TABLET PO SCH (22:14)
[2017-08-24] MEDS: MIRTAZAPINE 15 MG TABLET PO SCH (22:14)
[2017-08-24] MEDS: ATORVASTATIN 40 MG TABLET PO SCH (22:14)
--- NOTE | 2017-08-25 01:25 | NUR ---
Pt has been fragmented, disorganized, & with flat/anxious affect but compliant with her meds w/o any promptings.
[2017-08-25 08:00] VITALS: BP 102/59
[2017-08-25] MEDS: PANTOPRAZOLE 40 MG TABLET.DR PO SCH (08:07)
[2017-08-25] MEDS: BENZTROPINE MESYLATE (1 MG) 1 MG TABLET PO SCH ×2 (08:07→16:30)
[2017-08-25] MEDS: HALOPERIDOL 1 MG TABLET PO SCH ×3 (08:07→16:36)
[2017-08-25] MEDS: METOPROLOL TARTRATE 25 MG TABLET PO SCH ×2 (09:00→16:35)
[2017-08-25] MEDS: FUROSEMIDE 20 MG TABLET PO SCH (09:00)
[2017-08-25] MEDS: LOSARTAN POTASSIUM 25 MG TABLET PO SCH (09:00)
[2017-08-25] MEDS: DOCUSATE SODIUM 100 MG CAPSULE PO SCH (09:28)
[2017-08-25] MEDS: ASPIRIN 81 MG TAB.CHEW PO SCH (09:28)
[2017-08-25] MEDS: DONEPEZIL 5 MG TABLET PO SCH (09:28)
[2017-08-25] MEDS: Z GUARD REMEDY 2 OZ OINT TP SCH (09:28)
--- NOTE | 2017-08-25 10:00 | NUR ---
NURSING NOTE HELD MORNING BP MEDS DUE TO DECREASED BP, 98/57, HR 77, MD NOTIFIED, WILL CONTINUE TO MONITOR
[2017-08-25] MEDS: APIXABAN 2.5 MG TABLET PO SCH ×2 (12:06→16:36)
[2017-08-25 16:00] VITALS: BP 100/60
--- NOTE | 2017-08-25 17:00 | NUR ---
HELP METOPROLOL DUE TO DECREASED BP 100/60, HR 73, NOTIFIED, WILL CONTINUE TO MONITOR
[2017-08-25 19:47] VITALS: BP 110/66
[2017-08-25] MEDS: TRAZODONE 50 MG TABLET PO SCH (21:31)
[2017-08-25] MEDS: MIRTAZAPINE 15 MG TABLET PO SCH (21:32)
[2017-08-25] MEDS: ATORVASTATIN 40 MG TABLET PO SCH (21:32)
[2017-08-26 08:00] VITALS: BP 115/56
[2017-08-26] MEDS: HALOPERIDOL 1 MG TABLET PO SCH ×3 (08:55→16:45)
[2017-08-26] MEDS: DONEPEZIL 5 MG TABLET PO SCH (08:55)
[2017-08-26] MEDS: ASPIRIN 81 MG TAB.CHEW PO SCH (08:55)
[2017-08-26] MEDS: PANTOPRAZOLE 40 MG TABLET.DR PO SCH (08:55)
[2017-08-26] MEDS: DOCUSATE SODIUM 100 MG CAPSULE PO SCH (08:55)
[2017-08-26] MEDS: BENZTROPINE MESYLATE (1 MG) 1 MG TABLET PO SCH ×2 (08:55→16:45)
[2017-08-26] MEDS: FUROSEMIDE 20 MG TABLET PO SCH (08:56)
[2017-08-26] MEDS: METOPROLOL TARTRATE 25 MG TABLET PO SCH ×2 (08:57→16:46)
[2017-08-26] MEDS: LOSARTAN POTASSIUM 25 MG TABLET PO SCH (08:58)
[2017-08-26] MEDS: APIXABAN 2.5 MG TABLET PO SCH ×2 (09:04→16:45)
[2017-08-26] MEDS: Z GUARD REMEDY 2 OZ OINT TP SCH (09:06)
--- NOTE | 2017-08-26 10:33 | NUR ---
WOUND CARE CONSULT: PT FOLLOWED BY PLASTIC SURGERY TEAM FOR WOUND AND SKIN CARE. DEFER TO SURGICAL TEAM FOR WOUND TREATMENT PLAN. MD IN AGREEMENT WITH PLAN OF CARE.
--- NOTE | 2017-08-26 15:02 | NUR ---
Initial Discharge Plan: Pt currently lives at [facility], [address] [address] [address]; . DREW contacted [facility] to inquire about pts return once she is ready to discharge. Per Makenna from Admissions, she stated she was unsure if pt would be returning to the facility. SW was transferred to a staff member that would provide the information however no one answered; a message was left. DREW also contacted pts daughter, Bridget Desir, however was unable to speak to her; a message was left. DREW will follow up to ensure pt is safely and adequately discharged.
--- NOTE | 2017-08-26 15:56 | NUR ---
GPS/RN NOTE RECEIVED CALL FROM DR JAVIER WITH NEW ORDER. THE ORDER READ BACK, VERIFIED. NOTED AND CARRIED OUT.
[2017-08-26 16:00] VITALS: BP 131/57
[2017-08-26] MEDS: BOOST PLUS FOOD-CHOCLATE 237 ML BOX PO SCH (17:18)
--- NOTE | 2017-08-26 19:30 | NUR ---
GPS RN NOTE, RECEIVED PATIENT AWAKE AND IN BED, NO S/S OR COMPLAINTS OF PAIN AT THIS TIME. PATIENT IS DISPLAYING NO S/S OF APPARENT DISTRESS AT THIS TIME. PATIENT BREATHING IS UNLABORED WITH EQUAL RISE AND FALL OF THE CHEST. PATIENT IS ALERT AND ORIENTED X 2 ON ROOM AIR WITH A SPO2 OF 95%. PATIENT IS MEDICATION COMPLIANT, DEPRESSED, ISOLATIVE, AND NEEDS REORIENTATION. PATIENT DENIES SUICIDE IDEATIONS AND HOMICIDAL IDEATIONS AT THIS TIME. PATIENT ASSISTED WITH TURNING AND REPOSITIONING Q2HR AND PRN FOR COMFORT AND CIRCULATION. PATIENT HAS NO NEEDS AT THIS TIME. PATIENT EDUCATED ON THE USE OF THE CALL RAMON. PATIENT SIDE RAILS ARE UP X 2, BED IS LOCKED AND LOW, AND I WILL CONTINUE TO MONITOR THIS PATIENT Q 15 MIN WITH THE HELP OF STAFF.
[2017-08-26 19:54] VITALS: BP 123/81
[2017-08-26] MEDS: MIRTAZAPINE 15 MG TABLET PO SCH (21:34)
[2017-08-26] MEDS: ATORVASTATIN 40 MG TABLET PO SCH (21:34)
[2017-08-26] MEDS ORDERED: TRAZODONE 50 MG TABLET PO SCH (22:00)
[2017-08-27] MEDS: PANTOPRAZOLE 40 MG TABLET.DR PO SCH (07:30)
[2017-08-27 08:00] VITALS: BP 107/60
[2017-08-27] MEDS: BOOST PLUS FOOD-CHOCLATE 237 ML BOX PO SCH ×2 (08:00→17:00)
[2017-08-27] MEDS: BENZTROPINE MESYLATE (1 MG) 1 MG TABLET PO SCH ×2 (09:12→17:00)
[2017-08-27] MEDS: ASPIRIN 81 MG TAB.CHEW PO SCH (09:12)
[2017-08-27] MEDS: DOCUSATE SODIUM 100 MG CAPSULE PO SCH (09:12)
[2017-08-27] MEDS: METOPROLOL TARTRATE 25 MG TABLET PO SCH ×2 (09:15→17:00)
[2017-08-27] MEDS: LOSARTAN POTASSIUM 25 MG TABLET PO SCH (09:16)
[2017-08-27] MEDS: HALOPERIDOL 1 MG TABLET PO SCH ×3 (09:17→17:00)
[2017-08-27] MEDS: DONEPEZIL 5 MG TABLET PO SCH (09:17)
[2017-08-27] MEDS: FUROSEMIDE 20 MG TABLET PO SCH (09:19)
[2017-08-27] MEDS: APIXABAN 2.5 MG TABLET PO SCH ×2 (09:21→17:00)
[2017-08-27] MEDS: Z GUARD REMEDY 2 OZ OINT TP SCH (09:22)
--- NOTE | 2017-08-27 10:46 | NUR ---
Discharge Planning: SW called [facility], [address] [address] [address]; and confirmed with admissions that patient is on a seven day bed hold. today is the fifth day of the bed hold.
--- NOTE | 2017-08-27 12:37 | NUR ---
Discharge Planning: SW spoke with patient's daughter Carmen [phone] and patient's daughter + RUTH Gill [phone]. Both stated that they believed a locked unit would be more appropriate for their mother, as she can be a flight risk at a facility. They asked SW to fax referrals to locked SNFs if possible. SW stated that she will do her best to secure placement for patient at locked SNF.
--- NOTE | 2017-08-27 12:39 | NUR ---
Discharge Planning: DREW faxed inquiry [facility] [address], [place] / fax number [phone]. DREW to follow up on status of referral. Addendum: 08/27/17 at 1424 by VIRIDIANA RUSSELL Davy Myers in admissions, patient is not accepted into facility
--- NOTE | 2017-08-27 14:24 | NUR ---
Discharge Planning: DREW faxed inquiry to [facility] [address] [place] [address]; and fax # Addendum: 08/27/17 at 1442 by VIRIDIANA RUSSELL Davy Hernandez in admissions, patient is accepted into facility. DREW to notify family.
[2017-08-27 16:00] VITALS: BP 100/52
[2017-08-27] MEDS: DIVALPROEX SODIUM 250 MG TABLET.DR PO SCH (20:10)
[2017-08-27 20:47] VITALS: BP 97/63
[2017-08-27] MEDS: ATORVASTATIN 40 MG TABLET PO SCH (21:13)
[2017-08-27] MEDS: MIRTAZAPINE 15 MG TABLET PO SCH (21:13)
[2017-08-28 08:00] VITALS: BP 165/84
[2017-08-28] MEDS: FUROSEMIDE 20 MG TABLET PO SCH (08:36)
[2017-08-28] MEDS: PANTOPRAZOLE 40 MG TABLET.DR PO SCH (08:36)
[2017-08-28] MEDS: HALOPERIDOL 1 MG TABLET PO SCH ×3 (08:37→16:16)
[2017-08-28] MEDS: DONEPEZIL 5 MG TABLET PO SCH (08:37)
[2017-08-28] MEDS: METOPROLOL TARTRATE 25 MG TABLET PO SCH ×2 (08:37→17:36)
[2017-08-28] MEDS: BOOST PLUS FOOD-CHOCLATE 237 ML BOX PO SCH ×2 (08:37→16:16)
[2017-08-28] MEDS: ASPIRIN 81 MG TAB.CHEW PO SCH (08:37)
[2017-08-28] MEDS: LOSARTAN POTASSIUM 25 MG TABLET PO SCH (08:37)
[2017-08-28] MEDS: DOCUSATE SODIUM 100 MG CAPSULE PO SCH (08:37)
[2017-08-28] MEDS: BENZTROPINE MESYLATE (1 MG) 1 MG TABLET PO SCH ×2 (08:37→16:16)
[2017-08-28] MEDS: Z GUARD REMEDY 2 OZ OINT TP SCH (08:38)
[2017-08-28] MEDS: APIXABAN 2.5 MG TABLET PO SCH ×2 (08:44→16:16)
--- NOTE | 2017-08-28 11:07 | NUR ---
Discharge Planning: DREW spoke with patient's daughter Carmen [phone] and informed her of patient's acceptance to [facility]. DREW provided her the contact number for facility and encouraged to contact public information coordinator at [facility] to address any questions/concerns. Carmen stated that she will do so and will call DREW back by the end of the day.
[2017-08-28 16:00] VITALS: BP 100/59
--- NOTE | 2017-08-28 16:47 | NUR ---
Discharge Planning: DREW was informed by patient's daughter Carmen [phone] that the family will be touring [facility] tomorrow at noon. SW to follow up. DREW called patient's daughter + RUTH Gill [phone] and left a voicemail with her direct contact information. DREW intended to discuss the discharge plan and the bed hold at [facility].
[2017-08-28 19:55] VITALS: BP 95/54
[2017-08-28] MEDS: DIVALPROEX SODIUM 250 MG TABLET.DR PO SCH (20:21)
[2017-08-28] MEDS: ATORVASTATIN 40 MG TABLET PO SCH (21:18)
[2017-08-28] MEDS: MIRTAZAPINE 15 MG TABLET PO SCH (21:18)
[2017-08-29 07:11] LABS: BASOPHILS % (AUTO) 0.7 % (0.0-2.0); EOSINOPHILS # (AUTO) 0.3 /CMM (0.0-0.7); EOSINOPHILS % (AUTO) 4.6 % (0.0-6.0); HEMATOCRIT 37 % (33-45); HEMOGLOBIN 12.8 g/dL (11.5-14.8); LYMPHOCYTES # (AUTO) 2.6 /CMM (0.8-4.8); LYMPHOCYTES % (AUTO) 36.1 % (20.0-44.0); MEAN CORPUSCULAR HEMOGLOBIN 33 PG (26.0-33.0); MEAN CORPUSCULAR HGB CONC 34 g/dl (31.0-36.0); MEAN CORPUSCULAR VOLUME 96 fL (82-100); MONOCYTES # (AUTO) 0.7 /CMM (0.1-1.30); MONOCYTES % (AUTO) 9.6 % (2.0-12.0); NEUTROPHILS # (AUTO) 3.5 /CMM (1.8-8.9); PLATELET COUNT (AUTO) 278 /CMM (150-450); RDW COEFFICIENT OF VARIATION 15.1 (11.5-15.0); RED BLOOD CELL COUNT(AUTO) 3.89 MIL/uL (4.0-5.2); WHITE BLOOD COUNT (AUTO) 7.1 K/uL (4.3-11.0)
[2017-08-29 07:47] LABS: CALCIUM, SERUM 8.6 mg/dL (8.5-10.1); CARBON DIOXIDE 27 mmol/L (21-32); CHLORIDE 102 mmol/L (98-107); CREATININE 0.8 mg/dL (0.6-1.3); GLUCOSE 104 mg/dL (74-106); POTASSIUM 3.4 mmol/L (3.5-5.1); SODIUM SERUM 138 mmol/L (136-145); UREA NITROGEN, BLOOD 10 mg/dL (7-18)
[2017-08-29 08:00] VITALS: BP 100/65
[2017-08-29] MEDS: DONEPEZIL 5 MG TABLET PO SCH (08:02)
[2017-08-29] MEDS: PANTOPRAZOLE 40 MG TABLET.DR PO SCH (08:02)
[2017-08-29] MEDS: HALOPERIDOL 1 MG TABLET PO SCH ×2 (08:03→13:17)
[2017-08-29] MEDS: DOCUSATE SODIUM 100 MG CAPSULE PO SCH (08:03)
[2017-08-29] MEDS: ASPIRIN 81 MG TAB.CHEW PO SCH (08:03)
[2017-08-29] MEDS: BENZTROPINE MESYLATE (1 MG) 1 MG TABLET PO SCH ×2 (08:03→16:22)
[2017-08-29] MEDS: FUROSEMIDE 20 MG TABLET PO SCH (08:03)
[2017-08-29] MEDS: BOOST PLUS FOOD-CHOCLATE 237 ML BOX PO SCH ×2 (08:18→17:00)
[2017-08-29] MEDS: APIXABAN 2.5 MG TABLET PO SCH ×2 (08:18→16:25)
[2017-08-29] MEDS: Z GUARD REMEDY 2 OZ OINT TP SCH (09:00)
[2017-08-29] MEDS: LOSARTAN POTASSIUM 25 MG TABLET PO SCH (09:00)
[2017-08-29] MEDS: METOPROLOL TARTRATE 25 MG TABLET PO SCH ×2 (09:00→16:23)
[2017-08-29] MEDS ORDERED: POTASSIUM CHLORIDE 20 MEQ TAB.PRT.SR PO SCH ×2 (10:00→12:00)
--- NOTE | 2017-08-29 13:46 | NUR ---
Discharge Planning: DREW called patient's daughter Carmen [phone] to discuss the discharge plan. Carmen stated that she and her brother toured the facility today and that they approved of it. DREW then called patient's daughter + RUTH Gill [phone], who lives in [place]. Bridget stated that she spoke with her sister Carmen and that she [Bridget] is also in agreement and approves of the discharge plan. Discharge is scheduled for tomorrow. Family aware and in agreement.
[2017-08-29] MEDS: DIVALPROEX SODIUM 125 MG CAP.SPRINK PO SCH (15:27)
[2017-08-29 16:00] VITALS: BP 115/55
[2017-08-29 20:00] VITALS: BP 104/73
[2017-08-29] MEDS ORDERED: HALOPERIDOL 1 MG TABLET PO SCH (20:00)
[2017-08-29] MEDS ORDERED: DIVALPROEX SODIUM 250 MG TABLET.DR PO SCH (20:00)
--- NOTE | 2017-08-29 20:08 | NUR ---
REPORT GIVEN TO LUZMA WRIGHT FOR CONTINUITY OF CARE.
[2017-08-29] MEDS: ATORVASTATIN 40 MG TABLET PO SCH (21:42)
[2017-08-30 08:29] VITALS: BP 117/60
--- NOTE | 2017-08-30 08:34 | NUR ---
Discharge Note: Patient will discharged to [facility] [address] [place] [address]; and fax # via ambulance transportation arranged by nursing home social worker through [employer], trip #[id number]. Patient's daughter Carmen [phone] and patient's daughter + RUTH Gill [phone] are aware and in agreement with the discharge plan. On day of discharge, patient denies suicidal and homicidal ideation. Patient denies visual and auditory hallucinations. Patient is cooperative. At the facility, patient will be under the care of barrel and receiver aligner Dr. Esequiel Judd [address] [facility] [address], [place] [address] [phone]. Patient will also be seen by psychiatrist Dr. Preciado [address], [place] [address] [phone]
--- NOTE | 2017-08-30 08:36 | NUR ---
DR. JAVIER GAVE AN ORDER TO D/C HOLD AND D/C TO [facility] AND TO CONTINUE SAME MEDS INCLUDING PRN AND TO FOLLOW UP WITH PSYCH AND MEDICAL DOCTORS.
[2017-08-30] MEDS: BOOST PLUS FOOD-CHOCLATE 237 ML BOX PO SCH (09:02)
[2017-08-30] MEDS: APIXABAN 2.5 MG TABLET PO SCH (09:03)
[2017-08-30] MEDS: DONEPEZIL 5 MG TABLET PO SCH (09:06)
[2017-08-30] MEDS: DOCUSATE SODIUM 100 MG CAPSULE PO SCH (09:06)
[2017-08-30] MEDS: ASPIRIN 81 MG TAB.CHEW PO SCH (09:06)
[2017-08-30] MEDS: BENZTROPINE MESYLATE (1 MG) 1 MG TABLET PO SCH (09:06)
[2017-08-30] MEDS: PANTOPRAZOLE 40 MG TABLET.DR PO SCH (09:06)
[2017-08-30] MEDS: FUROSEMIDE 20 MG TABLET PO SCH (09:06)
[2017-08-30] MEDS: DIVALPROEX SODIUM 125 MG CAP.SPRINK PO SCH (09:06)
[2017-08-30 09:07] VITALS: BP 117/60
[2017-08-30] MEDS: METOPROLOL TARTRATE 25 MG TABLET PO SCH (09:07)
[2017-08-30] MEDS: LOSARTAN POTASSIUM 25 MG TABLET PO SCH (09:07)
[2017-08-30] MEDS: Z GUARD REMEDY 2 OZ OINT TP SCH (09:08)
--- NOTE | 2017-08-30 12:30 | NUR ---
GPS/RN PT D/C'ED TO [facility] REPORT GIVEN TO CHRISTINA SEGAL AT [facility]. PRESCRIPTIONS AND FACE SHEET FAXED TO FACILITY BY REQUEST. EXIT CARE /PRESCRIPTIONS GIVEN AND UNDERSTOOD. NO SI OR HI REPORTED AT THE TIME OF D/C. PICTURES TAKEN, BELONGINGS RETURNED. PT LEFT VIA AMBULANCE
== END 2017-08-30 12:30 | DRG 881 ==
LOC: ER 18:54 → GPS 21:29
PROVIDERS: ADMIT Psychiatry & Neurology Psychosomatic Medicine; ATTEND Psychiatry & Neurology Psychosomatic Medicine
DX: F32.9 Major depressive disorder, single episode, unspecified (principal); G93.40 Encephalopathy, unspecified; L89.154 Pressure ulcer of sacral region, stage 4; L89.322 Pressure ulcer of left buttock, stage 2; E44.0 Moderate protein-calorie malnutrition; I11.0 Hypertensive heart disease with heart failure; D68.59 Other primary thrombophilia; I50.9 Heart failure, unspecified; I48.2 Chronic atrial fibrillation; F03.90 Unspecified dementia, unspecified severity, without behavioral disturbance, psychotic disturbance, mood disturbance, and anxiety; F29 Unspecified psychosis not due to a substance or known physiological condition; I25.10 Atherosclerotic heart disease of native coronary artery without angina pectoris; I25.2 Old myocardial infarction; K21.9 Gastro-esophageal reflux disease without esophagitis; Z98.61 Coronary angioplasty status; Z90.710 Acquired absence of both cervix and uterus; Z79.82 Long term (current) use of aspirin; Z79.899 Other long term (current) drug therapy; L98.9 Disorder of the skin and subcutaneous tissue, unspecified; Z73.6 Limitation of activities due to disability; J44.9 Chronic obstructive pulmonary disease, unspecified; I70.0 Atherosclerosis of aorta; Z82.49 Family history of ischemic heart disease and other diseases of the circulatory system; E78.5 Hyperlipidemia, unspecified; E87.6 Hypokalemia; F41.9 Anxiety disorder, unspecified
CPT/HCPCS: 36415; 80048-TC; 80053-TC; 80061-TC; 80076-TC; 80305; 81000-TC; 85025-TC; 87081-TC; A4606; G0480; Z7610

== ENCOUNTER 2018-03-17 15:08 | Emergency (ER) | payer MEDICARE, MEDICAID ==
[~2018-03-17] VITALS: Ht 152.4 cm; Wt 45.8 kg
[~2018-03-17 15:08] MED LIST changes: +BISA10SU8 RC; +GEL100GE TD; -HALO1TAB5 PO; -LORA0.5T PO; -MIRT15TA7 PO; +NA P133E RC; -QUET25TA PO; -TRAZ-144 PO
--- NOTE | 2018-03-17 15:36 | NUR ---
BIBPA FOR EVAL-- SP FALL. PER PATIENT SHE HIT HER HEAD AND RIGHT KNEE. NO KO REPORTED. PT IS AAO2. PATIENT DENIES ANY PAIN OR DISCOMFORT AT THIS TIME. VSS
--- NOTE | 2018-03-17 17:13 | NUR ---
CALLED [facility]#[id number] ETA [phone]
[2018-03-17 18:33] VITALS: BP 112/62
--- NOTE | 2018-03-17 18:33 | NUR ---
PATIENT WAS PICKED UP BY [facility]. VSS
== END 2018-03-17 18:36 | disposition home or self-care (01) ==
LOC: ER 15:20
DX: S00.83XA Contusion of other part of head, initial encounter (principal); S80.01XA Contusion of right knee, initial encounter; I48.91 Unspecified atrial fibrillation; I21.9 Acute myocardial infarction, unspecified; K21.9 Gastro-esophageal reflux disease without esophagitis; F03.90 Unspecified dementia, unspecified severity, without behavioral disturbance, psychotic disturbance, mood disturbance, and anxiety; J44.9 Chronic obstructive pulmonary disease, unspecified; G93.41 Metabolic encephalopathy; Z98.49 Cataract extraction status, unspecified eye; Z90.710 Acquired absence of both cervix and uterus; Z95.5 Presence of coronary angioplasty implant and graft; Z79.82 Long term (current) use of aspirin; W01.0XXA Fall on same level from slipping, tripping and stumbling without subsequent striking against object, initial encounter; Y93.89 Activity, other specified; Y92.091 Bathroom in other non-institutional residence as the place of occurrence of the external cause; Y99.8 Other external cause status
CPT/HCPCS: 70450; 73564; 99284; A4606; Z7610

== ENCOUNTER 2018-07-28 13:24 | Inpatient (IN) | payer MEDICARE, MEDICAID ==
[~2018-07-28] VITALS: Ht 157.5 cm; Wt 63.5 kg
[~2018-07-28 13:24] MED LIST changes: -LOSA25TA13 PO; +LOSA25TA27 PO
--- NOTE | 2018-07-28 13:28 | NUR ---
AT BEDSIDE FOR EVAL.
--- NOTE | 2018-07-28 13:30 | NUR ---
PATIENT CALLED 911 S/P MECHANICAL FALL WITH LACERATIONS TO RIGHT EYEBROW, RIGHT UPPER LIP AND BELOW CHIN. NO KO. NO SYNCOPE.
[2018-07-28] MEDS ORDERED: LIDOCAINE 1%-EPI 1:100,000 20 ML VIAL ONE (13:34)
--- NOTE | 2018-07-28 13:39 | NUR ---
LETITIA HILLS PER MD. BEDOYA AT BEDSIDE
[2018-07-28 13:48] LABS: BASOPHILS # (AUTO) 0.1 /CMM (0.0-0.2); EOSINOPHILS % (AUTO) 3.1 % (0.0-6.0); HEMATOCRIT 34 % (33-45); HEMOGLOBIN 11.2 g/dL (11.5-14.8); LYMPHOCYTES # (AUTO) 1.8 /CMM (0.8-4.8); LYMPHOCYTES % (AUTO) 24.6 % (20.0-44.0); MEAN CORPUSCULAR HGB CONC 33 g/dl (31.0-36.0); MEAN CORPUSCULAR VOLUME 99 fL (82-100); MONOCYTES # (AUTO) 0.8 /CMM (0.1-1.30); MONOCYTES % (AUTO) 11.2 % (2.0-12.0); NEUTROPHILS # (AUTO) 4.5 /CMM (1.8-8.9); NEUTROPHILS % (AUTO) 60.1 % (43.0-81.0); PLATELET COUNT (AUTO) 293 /CMM (150-450); RED BLOOD CELL COUNT(AUTO) 3.41 MIL/uL (4.0-5.2); WHITE BLOOD COUNT (AUTO) 7.4 K/uL (4.3-11.0)
[2018-07-28] MEDS ORDERED: HALO0.5T2 PO (13:50)
[2018-07-28] MEDS ORDERED: AMIN30LI2 PO (13:50)
[2018-07-28] MEDS ORDERED: SENN-168 PO (13:50)
[2018-07-28] MEDS ORDERED: LACT20SO4 PO (13:50)
[2018-07-28] MEDS ORDERED: MIRT7.5T10 PO (13:50)
[2018-07-28] MEDS ORDERED: CALC-7 PO (13:50)
[2018-07-28] MEDS ORDERED: DIVA125C2 PO (13:50)
[2018-07-28] MEDS ORDERED: ACET-868 PO (13:50)
[2018-07-28] MEDS ORDERED: HALO2ORA PO (13:50)
[2018-07-28] MEDS ORDERED: BENZ0.5T43 PO (13:50)
[2018-07-28] MEDS ORDERED: CHOL100044 PO (13:50)
--- NOTE | 2018-07-28 13:50 | NUR ---
OK FOR NO IV ACCESS
[2018-07-28 13:56] LABS: CALCIUM, SERUM 8.9 mg/dL (8.5-10.1); CARBON DIOXIDE 32 mmol/L (21-32); CHLORIDE 109 mmol/L (98-107); CREATININE 0.9 mg/dL (0.6-1.3); GLUCOSE 110 mg/dL (74-106); POTASSIUM 4.1 mmol/L (3.5-5.1); SODIUM SERUM 144 mmol/L (136-145); UREA NITROGEN, BLOOD 19 mg/dL (7-18)
[2018-07-28 14:02] LABS: ALANINE AMINOTRANSFERASE 22 U/L (12-78); ALBUMIN 3.1 g/dL (3.4-5.0); ALKALINE PHOSPHATASE 71 U/L (46-116); ASPARTATE AMINOTRANSFERASE 21 U/L (15-37); BILIRUBIN,DIRECT 0.1 mg/dL (0.0-0.2); BILIRUBIN,TOTAL 0.4 mg/dL (0.2-1.0); TOTAL PROTEIN, SERUM 7.2 g/dL (6.4-8.2)
--- NOTE | 2018-07-28 14:28 | NUR ---
SHANNAN VANG NP ON-CALL.
--- NOTE | 2018-07-28 14:45 | NUR ---
PIV INSERTED PATIENT IS BEING ADMITTED
--- NOTE | 2018-07-28 14:59 | NUR ---
GOT BED 308-1
--- NOTE | 2018-07-28 15:30 | NUR ---
REPORT GIVEN TO JACQUARD LOOM CARD CHANGER BED 308-1 FOR YANELIS.
--- NOTE | 2018-07-28 15:30 | NUR ---
BUBBA GIL IS WITH PATIENT FOR TRANSFER Addendum: 07/28/18 at 1546 by MARYLIN BUBBA WILL
--- NOTE | 2018-07-28 15:46 | NUR ---
PATIENT CARE TRANSFERED TO LUZMA BALLESTEROS FOR YANELIS.
[2018-07-28 16:00] VITALS: BP 125/74
[2018-07-28] MEDS ORDERED: MAGNESIUM HYDROXIDE 30 ML UDC PO PRN (16:00)
[2018-07-28] MEDS ORDERED: ONDANSETRON HCL/PF 4 MG/2 ML VIAL IVP PRN (16:00)
[2018-07-28] MEDS ORDERED: Z GUARD REMEDY 2 OZ OINT TP PRN (16:00)
[2018-07-28] MEDS ORDERED: MAG HYDROX/AL HYDROX/SIMETH 30 ML UDC PO PRN (16:00)
[2018-07-28] MEDS ORDERED: ACETAMINOPHEN 325 MG TABLET PO PRN ×2 (16:00)
[2018-07-28] MEDS ORDERED: HYDROCODONE/APAP 5/325MG 1 EACH TABLET PO PRN (16:00)
[2018-07-28] MEDS ORDERED: ZOLPIDEM TARTRATE 5 MG TABLET PO PRN (16:00)
--- NOTE | 2018-07-28 16:00 | NUR ---
PATIENT ADMITTED TO TELE. CORRECTLY SR WITH HR 102. VS ARE STABLE , PT AWAKE, CONFUSED , ORIENTED X1, ABLE TO RECOGNIZE FAMILY MEMBERS. PT STATUS DNR, COPY PROVIDED, PLACED IN CHART. PT GAIT UNSTEADY, FALL PRECAUTIONS IN PLACE. IV LINE TO LEFT AC # 20, H/L. LACERATIONS WITH STITCHES ON R EYEBROW, CHIN AND UPPER LIP. PICTURES TAKEN AND PLACED IN CHART. WILL CONTINUE TO MONITOR PT
[2018-07-28] MEDS: IV NS 0.9% 1,000 ML IV SCH (16:47)
[2018-07-28] MEDS ORDERED: APIXABAN 2.5 MG TABLET PO ONE (17:00)
[2018-07-28] MEDS ORDERED: APIXABAN 2.5 MG TABLET PO SCH (17:00)
[2018-07-28] MEDS: BENZTROPINE MESYLATE (1 MG) 1 MG TABLET PO SCH (17:12)
[2018-07-28] MEDS: DIVALPROEX SODIUM 125 MG CAP.SPRINK PO SCH (17:12)
[2018-07-28] MEDS: METOPROLOL TARTRATE 25 MG TABLET PO SCH (17:12)
[2018-07-28] MEDS: LACTULOSE 10 G/15 ML UDC (PYXIS) GT SCH (17:14)
--- NOTE | 2018-07-28 19:40 | NUR ---
TELE/RN NOTES RECEIVED PT. LYING IN BED RESTING. PT. IS EASILY AROUSABLE TO NAME AND TOUCH. BREATHING EVEN AND UNLABORED ON ROOM AIR. NO SOB, RESPIRATORY DISTRESS OR COMPLAINTS OF PAIN NOTED AT THIS TIME. PT. WITH EXTERNAL STEAMING CABINET TENDER PRESENT AND INTACT. CURRENT RHYTHM = AFIB HR 95. PT. WITH LEFT AC 20 GAUGE PERIPHERAL IV PRESENT, PATENT AND INTACT ADMINISTERING TO PT. NS @ 75 ML/HR. PT. WITH LACERATIONS NOTED TO HER FACE AND NECK, WOUND CONSULT PENDING. BED LOCKED AND IN LOWEST POSITION, SIDE RAILS UP X3, BED ALARM ON, CALL LIGHT WITHIN REACH, WILL CONTINUE TO MONITOR.
[2018-07-28 20:00] VITALS: BP 106/61
[2018-07-28] MEDS: HALOPERIDOL LACTATE 10 MG/5 ML UDC PO SCH (21:43)
[2018-07-28] MEDS: SENNOSIDES 8.6 MG TABLET PO SCH (21:44)
[2018-07-28] MEDS: MIRTAZAPINE 15 MG TABLET PO SCH (21:44)
[2018-07-28] MEDS ORDERED: ATORVASTATIN 40 MG TABLET PO SCH (22:00)
[2018-07-28] MEDS ORDERED: DONEPEZIL 5 MG TABLET PO SCH (22:00)
--- NOTE | 2018-07-28 23:34 | NUR ---
TELE/RN NOTES NOTIFIED [facility] GROUP MANAGER STAR PT. TROPONIN RESULTED AT 0.110 PREVIOUS TROPONIN WAS 0.106. NO COMPLAINTS OF CHEST PAIN NOTED. VITAL SIGNS STABLE. PT. IS AFIB HR 102. PER GROUP MANAGER STAR "OK NO NEW ORDERS". WILL CONTINUE TO MONITOR.
[2018-07-29] VITALS: BP 118/74
[2018-07-29 04:00] VITALS: BP 116/76
--- NOTE | 2018-07-29 06:26 | NUR ---
TELE/RN NOTES PT. IS LYING IN BED RESTING. PT. IS EASILY AROUSABLE TO NAME AND TOUCH. BREATHING EVEN AND UNLABORED ON ROOM AIR. NO SOB, RESPIRATORY DISTRESS OR COMPLAINTS OF PAIN NOTED AT THIS TIME. PT. WITH EXTERNAL PACKING ROOM INSPECTOR PRESENT AND INTACT. CURRENT RHYTHM = AFIB WITH PVCS HR 84. PT. WITH LEFT AC 20 GAUGE PERIPHERAL IV PRESENT, PATENT AND INTACT ADMINISTERING TO PT. NS @ 75 ML/HR. ALL PT. NEEDS MET. PT. OFFLOADED, TURNED AND REPOSITIONED Q2H AND NEEDED. BED LOCKED AND IN LOWEST POSITION, SIDE RAILS UP X3, BED ALARM ON, CALL LIGHT WITHIN REACH, WILL ENDORSE TO DAYSHIFT NURSE FOR CONTINUITY OF CARE.
[2018-07-29 07:17] LABS: BASOPHILS % (AUTO) 0.4 % (0.0-2.0); HEMATOCRIT 30 % (33-45); HEMOGLOBIN 9.9 g/dL (11.5-14.8); LYMPHOCYTES % (AUTO) 19.8 % (20.0-44.0); MEAN CORPUSCULAR HGB CONC 33 g/dl (31.0-36.0); MEAN CORPUSCULAR VOLUME 97 fL (82-100); MONOCYTES # (AUTO) 1.4 /CMM (0.1-1.30); MONOCYTES % (AUTO) 13.5 % (2.0-12.0); NEUTROPHILS # (AUTO) 6.5 /CMM (1.8-8.9); NEUTROPHILS % (AUTO) 64.3 % (43.0-81.0); PLATELET COUNT (AUTO) 258 /CMM (150-450); RED BLOOD CELL COUNT(AUTO) 3.05 MIL/uL (4.0-5.2); WHITE BLOOD COUNT (AUTO) 10.1 K/uL (4.3-11.0)
[2018-07-29] MEDS ORDERED: PANTOPRAZOLE 40 MG TABLET.DR PO SCH (07:30)
[2018-07-29 07:39] LABS: CARBON DIOXIDE 27 mmol/L (21-32); CHLORIDE 106 mmol/L (98-107); CREATININE 0.6 mg/dL (0.6-1.3); GLUCOSE 100 mg/dL (74-106); MAGNESIUM 1.9 mg/dL (1.8-2.4); PHOSPHORUS 2.9 mg/dL (2.5-4.9); POTASSIUM 3.5 mmol/L (3.5-5.1); SODIUM SERUM 139 mmol/L (136-145); UREA NITROGEN, BLOOD 14 mg/dL (7-18)
[2018-07-29 07:49] LABS: CHOLESTEROL 117 mg/dL (<200); HDL CHOLESTEROL 35 mg/dL (40-60); LDL 73 mg/dL (0-99); THYROID STIMULATING HORMONE 2.119 uIU/mL (0.358-3.74); TRIGLYCERIDES 88 mg/dL (30-150)
[2018-07-29 08:00] VITALS: BP 120/60
[2018-07-29] MEDS: HALOPERIDOL 1 MG TABLET PO SCH (09:00)
[2018-07-29] MEDS: PROSOURCE / PROSTAT (PYXIS) 30 ML UDC PO SCH (09:00)
[2018-07-29] MEDS ORDERED: FUROSEMIDE 20 MG TABLET PO SCH (09:00)
[2018-07-29] MEDS ORDERED: ASPIRIN 81 MG TAB.CHEW PO SCH (09:00)
[2018-07-29] MEDS ORDERED: DOCUSATE SODIUM 100 MG CAPSULE PO SCH (09:00)
[2018-07-29 09:08] LABS: IRON, SERUM 26 ug/dl (50-175); TOTAL IRON BINDING CAPACITY 260 ug/dl (250-450)
[2018-07-29 09:23] LABS: FERRITIN 34 ng/mL (8-388)
[2018-07-29] MEDS: DOCUSATE SODIUM 100 MG CAPSULE PO SCH (11:00)
[2018-07-29] MEDS ORDERED: IV NS 0.9% 1,000 ML BAG IV ONE (11:00)
[2018-07-29] MEDS: PANTOPRAZOLE 40 MG VIAL IV SCH (11:46)
[2018-07-29] MEDS: BENZTROPINE MESYLATE (1 MG) 1 MG TABLET PO SCH ×2 (11:57→17:54)
[2018-07-29] MEDS: LACTULOSE 10 G/15 ML UDC (PYXIS) GT SCH ×2 (11:58→17:54)
[2018-07-29] MEDS: MULTIVIT W/MINERALS 1 TAB TABLET PO SCH (11:58)
[2018-07-29] MEDS: HALOPERIDOL LACTATE 10 MG/5 ML UDC PO SCH ×2 (11:59→21:15)
[2018-07-29] MEDS: CALCIUM CARB 250MG /VITAMIN D 1 UDTAB PO SCH (12:01)
[2018-07-29] MEDS: DIVALPROEX SODIUM 125 MG CAP.SPRINK PO SCH ×3 (12:01→17:54)
[2018-07-29] MEDS: CHOLECALCIFEROL 1,000 UNIT TABLET (VIT D3) PO SCH (12:06)
[2018-07-29] MEDS: LOSARTAN POTASSIUM 25 MG TABLET PO SCH (12:09)
[2018-07-29] MEDS: METOPROLOL TARTRATE 25 MG TABLET PO SCH ×2 (12:09→17:54)
--- NOTE | 2018-07-29 12:27 | NUR ---
PT. RECEIVED FIRST DOSE OF DEPAKOTE, AND HALDOL NOW. MORNING DOSE WAS SKIPPED.
[2018-07-29] MEDS: NEOMY SULF/BACITRAC ZN/POLY 15 GM TUBE TP SCH (14:30)
[2018-07-29 16:00] VITALS: BP 112/65
[2018-07-29] MEDS: IV NS 0.9% 1,000 ML IV SCH ×2 (16:06→18:50)
[2018-07-29 16:25] LABS: APPEARANCE,URINE SL CLOUDY (CLEAR); BILIRUBIN,URINE NEGATIVE (NEGATIVE); BLOOD, URINE 1+ Ery/uL (NEGATIVE); COLOR,URINE YELLOW (YELLOW); KETONES,URINE NEGATIVE (NEGATIVE); LEUKOCYTE ESTERASE ,URINE 1+ (NEGATIVE); NITRITE, URINE POSITIVE (NEGATIVE); PROTEIN,URINE NEGATIVE (NEGATIVE); UGLUCOSE NEGATIVE (NEGATIVE); UROBILINOGEN,URINE 0.2 EU/dL (0.2)
[2018-07-29 16:37] LABS: BACTERIA,URINE Few /HPF (None Seen); SQUAMOUS EPITHELIAL CELL,UR Few /HPF (None Seen)
--- NOTE | 2018-07-29 19:15 | NUR ---
MS RN RECEIVED PT ON BED, A/O X1, NOT IN ANY FORM OF DISTRESS, RESPIRATIONS EVEN AND UNLABORED, NO SOB NOTED, STABLE CONDITION. SAFETY MEASURES IN PLACE. WILL CONTINUE TO MONITOR.
--- NOTE | 2018-07-29 19:51 | NUR ---
RN OPENING NOTES RECEIVED PT. IN BED A&OX1, CONFUSED. BREATHING UNLABORED ON ROOM AIR. NO S/S OF ACUTE DISTRESS. PT. HAS MULTIPLE FACIAL BRUISES, WITH SWELLING AND STITCHES. IV FLUIDS RUNNING AT 75 ML/HR. BED IS IN LOWEST, AND LOCKED POSITION. 2 SIDE RAILS UP, AND CALL LIGHT WITHIN REACH. WILL CONTINUE TO ASSESS AND MONITOR. Addendum: 07/29/18 at 1953 by WOODROW CRUZ RN OPENING NOTE FOR 80
--- NOTE | 2018-07-29 19:54 | NUR ---
RN CLOSING NOTES PT. IS SITTING UP IN BED A&OX1, CONFUSED. BREATHING UNLABORED ON ROOM AIR. NO S/S OF ACUTE DISTRESS. IV FLUIDS RUNNING AT 75 ML/HR. BED IS IN LOWEST, AND LOCKED POSITION. 2 SIDE RAILS UP, AND CALL LIGHT WITHIN REACH. ENDORSED REPORT TO NURSE.
[2018-07-29 20:00] VITALS: BP 112/62
[2018-07-29 20:44] VITALS: BP 112/62
[2018-07-29] MEDS: SENNOSIDES 8.6 MG TABLET PO SCH (21:16)
[2018-07-29] MEDS: MIRTAZAPINE 15 MG TABLET PO SCH (21:16)
[2018-07-30 01:58] VITALS: BP_SYST 129; BP_SYST 152; BP_DIAS 101; BP_DIAS 120
--- NOTE | 2018-07-30 06:20 | NUR ---
RN CLOSING NOTE ASLEEP AND EASILY AWAKEN. TOLERATING ROOM AIR 98%. ASSISTED REPOSITION EVERY 2 HOURS. OFFLOAD HEELS AND ELBOWS. GOOD SKIN CARE. NOT IN DISTRESS. STABLE, NURSING CARE RENDERED, KEPT CLEAN AND DRY AND COMFORT, NEEDS ATTENDED AND ANTICIPATED.. SAFETY MEASURES IN PLACE, CALL LIGHT WITHIN REACH. WILL ENDORSE TO PROFESSOR OF COMMUNICATION FOR YANELIS.
[2018-07-30 06:46] LABS: BASOPHILS # (AUTO) 0.1 /CMM (0.0-0.2); BASOPHILS % (AUTO) 0.6 % (0.0-2.0); EOSINOPHILS % (AUTO) 3.6 % (0.0-6.0); HEMATOCRIT 32 % (33-45); HEMOGLOBIN 10.6 g/dL (11.5-14.8); LYMPHOCYTES # (AUTO) 2.3 /CMM (0.8-4.8); LYMPHOCYTES % (AUTO) 21.1 % (20.0-44.0); MEAN CORPUSCULAR HGB CONC 33 g/dl (31.0-36.0); MEAN CORPUSCULAR VOLUME 98 fL (82-100); MONOCYTES # (AUTO) 1.3 /CMM (0.1-1.30); MONOCYTES % (AUTO) 12.2 % (2.0-12.0); NEUTROPHILS # (AUTO) 6.9 /CMM (1.8-8.9); NEUTROPHILS % (AUTO) 62.5 % (43.0-81.0); PLATELET COUNT (AUTO) 236 /CMM (150-450); RED BLOOD CELL COUNT(AUTO) 3.28 MIL/uL (4.0-5.2); WHITE BLOOD COUNT (AUTO) 11.1 K/uL (4.3-11.0)
[2018-07-30 06:47] LABS: CALCIUM, SERUM 8.2 mg/dL (8.5-10.1); CARBON DIOXIDE 28 mmol/L (21-32); CHLORIDE 107 mmol/L (98-107); CREATININE 0.6 mg/dL (0.6-1.3); GLUCOSE 102 mg/dL (74-106); MAGNESIUM 1.9 mg/dL (1.8-2.4); PHOSPHORUS 2.6 mg/dL (2.5-4.9); POTASSIUM 3.3 mmol/L (3.5-5.1); SODIUM SERUM 140 mmol/L (136-145); UREA NITROGEN, BLOOD 7 mg/dL (7-18)
--- NOTE | 2018-07-30 07:44 | NUR ---
WOUND CARE CONSULT WOUND CARE RECEIVED CONSULT FOR SACRAL WOUND AND FACIAL LACERATIONS. WOUND CARE WILL DEFER CONSULT AND ALL TREATMENT PLANS TO PLASTIC SURGICAL TEAM WHO ARE CURRENTLY FOLLOWING THIS PATIENT. PATIENT WITH OMID AT 14, ALL PRESSURE ULCER PREVENTION MEASURES ARE NOTED TO BE IN PLACE. WILL SEE PRN.
[2018-07-30 07:59] VITALS: BP 125/84
[2018-07-30 08:00] VITALS: BP 125/84
--- NOTE | 2018-07-30 08:00 | NUR ---
rn notes received patient in the bed a/o x1/2, confused but redirectable, patient has no acute respiratory distress, no sob . Patient was complaining of pain but refused pain medication. Scheduled medication administered by crushed and administered with apple sauce. Assist eating patient poor eater because of wound can not open mouth . Assist turn and reposition q 2 hr, iv access on left ac area intact. call light within to reach, safety precaution maintained all the time.
[2018-07-30] MEDS: MULTIVIT W/MINERALS 1 TAB TABLET PO SCH (08:33)
[2018-07-30] MEDS: DOCUSATE SODIUM 100 MG CAPSULE PO SCH (08:33)
[2018-07-30] MEDS: LACTULOSE 10 G/15 ML UDC (PYXIS) GT SCH ×2 (08:33→17:00)
[2018-07-30] MEDS: DIVALPROEX SODIUM 125 MG CAP.SPRINK PO SCH ×3 (08:33→17:00)
[2018-07-30] MEDS: CHOLECALCIFEROL 1,000 UNIT TABLET (VIT D3) PO SCH (08:34)
[2018-07-30] MEDS: POTASSIUM CHLORIDE 20 MEQ TAB.PRT.SR PO SCH ×2 (08:34→08:59)
[2018-07-30] MEDS: BENZTROPINE MESYLATE (1 MG) 1 MG TABLET PO SCH ×2 (08:34→17:00)
[2018-07-30] MEDS: LOSARTAN POTASSIUM 25 MG TABLET PO SCH (08:35)
[2018-07-30] MEDS: CALCIUM CARB 250MG /VITAMIN D 1 UDTAB PO SCH (08:39)
[2018-07-30] MEDS: METOPROLOL TARTRATE 25 MG TABLET PO SCH ×2 (08:39→17:00)
[2018-07-30] MEDS: NEOMY SULF/BACITRAC ZN/POLY 15 GM TUBE TP SCH (08:40)
[2018-07-30] MEDS: PROSOURCE / PROSTAT (PYXIS) 30 ML UDC PO SCH (08:41)
[2018-07-30] MEDS: HALOPERIDOL 1 MG TABLET PO SCH (08:47)
--- NOTE | 2018-07-30 10:30 | NUR ---
rn notes patient with pt at this time. Patient stand up but because of weakness refused to walk, continued monitoring.
[2018-07-30] MEDS: PANTOPRAZOLE 40 MG VIAL IV SCH (10:56)
--- NOTE | 2018-07-30 13:00 | NUR ---
RN NOTES PATIENT STABLE NO COMPLAINING OF PAIN, SCHEDULED MEDICATION ADMINISTERED, PATIENT REDIRECTABLE, ASSIST TURN AND REPOSTION Q 2 HR. SAFETY PRECAUTION MAINTAINED ALL THE TIME.
[2018-07-30] MEDS: HALOPERIDOL LACTATE 10 MG/5 ML UDC PO SCH ×2 (15:00→21:18)
[2018-07-30] MEDS: SOD FERRIC GLUC 125 MG in IV NS 0.9% 100 ML IV SCH (15:14)
[2018-07-30 16:07] VITALS: BP 120/72
[2018-07-30] MEDS: ENSURE ENLIVE CHOC 237 ML CAN PO SCH (17:01)
--- NOTE | 2018-07-30 18:30 | NUR ---
RN NOTES PATIENT STABLE, NO ACUTE DISTRESS, REDIRECTABLE, COOPERATIVE, SCHEDULED MEDICATION ADMINISTERED, V/S STABLE, FAMILY NEXT TO THE BED, CALL LIGHT WITHIN TO REACH. ENDORSED ONCOMING NURSE FOR PLAN OF CARE.
--- NOTE | 2018-07-30 19:00 | NUR ---
RN OPENING NOTES RECEIVED PATIENT IN BED A&OX1, CONFUSED, FAMILY AT BEDSIDE. BREATHING EVEN AND UNLABORED- ON ROOM AIR. NO S/S OF ACUTE DISTRESS. PATIENT HAS MULTIPLE FACIAL BRUISES, WITH SWELLING AND STITCHES. IV SITE ON LAC G#20, S/L. BED IS IN LOWEST, AND LOCKED POSITION. 2 SIDE RAILS UP, BED ALARM ON, AND CALL LIGHT WITHIN REACH. WILL CONTINUE TO MONITOR ACCORDINGLY.
[2018-07-30 20:20] VITALS: BP 121/64
[2018-07-30] MEDS: SENNOSIDES 8.6 MG TABLET PO SCH (21:18)
[2018-07-30] MEDS: MIRTAZAPINE 15 MG TABLET PO SCH (21:18)
--- NOTE | 2018-07-30 22:40 | NUR ---
RN NOTES Patient complained of pain upon turning and repositioning, but unable to tell location and pain scale. Tylenol 650mg PO given as ordered. Will continue to monitor
[2018-07-31 07:04] LABS: CALCIUM, SERUM 8.2 mg/dL (8.5-10.1); CARBON DIOXIDE 30 mmol/L (21-32); CHLORIDE 110 mmol/L (98-107); CREATININE 0.6 mg/dL (0.6-1.3); GLUCOSE 92 mg/dL (74-106); POTASSIUM 3.7 mmol/L (3.5-5.1); SODIUM SERUM 145 mmol/L (136-145); UREA NITROGEN, BLOOD 9 mg/dL (7-18)
--- NOTE | 2018-07-31 07:25 | NUR ---
MS/RN NOTE THE PATIENT ALERT AND ORIENTED X1. IN ROOM AIR AND DENIES SOB. RESPIRATION REGULAR AND UNLABORED. DENIES PAIN. THE PATIENT IN NO APPARENT DISTRESS. LAC G 20 PATENT AND SALINE LOCKED. BED LOW AND LOCKED. SIDE RAILS UP X3. CALL LIGHT WITHIN REACH. WILL CONTINUE TO MONITOR.
--- NOTE | 2018-07-31 07:30 | NUR ---
RN CLOSING NOTE PATIENT ASLEEP AND EASILY AWAKEN. TOLERATING ROOM AIR 98%. ASSISTED REPOSITION EVERY 2 HOURS. OFFLOAD HEELS AND ELBOWS. GOOD SKIN CARE. NOT IN DISTRESS. STABLE, NURSING CARE RENDERED, KEPT CLEAN AND DRY AND COMFORTABLE. NEEDS ATTENDED AND ANTICIPATED. SAFETY MEASURES IN PLACE, CALL LIGHT WITHIN REACH. ENDORSED YANELIS TO AM RN.
[2018-07-31 08:00] VITALS: BP 119/76
[2018-07-31] MEDS: ENSURE ENLIVE CHOC 237 ML CAN PO SCH ×2 (08:00→17:00)
[2018-07-31] MEDS: LACTULOSE 10 G/15 ML UDC (PYXIS) GT SCH ×2 (08:32→18:22)
[2018-07-31] MEDS: CALCIUM CARB 250MG /VITAMIN D 1 UDTAB PO SCH (08:33)
[2018-07-31] MEDS: MULTIVIT W/MINERALS 1 TAB TABLET PO SCH (08:33)
[2018-07-31] MEDS: DOCUSATE SODIUM 100 MG CAPSULE PO SCH (08:33)
[2018-07-31] MEDS: BENZTROPINE MESYLATE (1 MG) 1 MG TABLET PO SCH ×2 (08:33→18:21)
[2018-07-31] MEDS: DIVALPROEX SODIUM 125 MG CAP.SPRINK PO SCH ×3 (08:33→18:21)
[2018-07-31] MEDS: METOPROLOL TARTRATE 25 MG TABLET PO SCH ×2 (08:34→18:22)
[2018-07-31] MEDS: LOSARTAN POTASSIUM 25 MG TABLET PO SCH (08:34)
[2018-07-31] MEDS: CHOLECALCIFEROL 1,000 UNIT TABLET (VIT D3) PO SCH (08:34)
[2018-07-31] MEDS: PROSOURCE / PROSTAT (PYXIS) 30 ML UDC PO SCH (08:37)
[2018-07-31] MEDS: HALOPERIDOL 1 MG TABLET PO SCH (08:37)
[2018-07-31] MEDS: NEOMY SULF/BACITRAC ZN/POLY 15 GM TUBE TP SCH (09:17)
[2018-07-31] MEDS: PANTOPRAZOLE 40 MG VIAL IV SCH (11:20)
[2018-07-31] MEDS: HALOPERIDOL LACTATE 10 MG/5 ML UDC PO SCH ×2 (13:42→21:25)
[2018-07-31] MEDS: SOD FERRIC GLUC 125 MG in IV NS 0.9% 100 ML IV SCH (15:21)
[2018-07-31 15:57] VITALS: BP 109/68
[2018-07-31 16:00] VITALS: BP 109/68
--- NOTE | 2018-07-31 19:45 | NUR ---
RN MS OPENING NOTES RECEIVED PT IN BED, SLEEPING EASILY AROUSED TO TOUCH AND NAME CALL. BREATHING EVEN AND UNLABORED ON RA. IN NO APPARENT DISTRESS AT THE MOMENT. BRUISING NOTED ON HER BROW, CHIN AND CHEEK FROM FALL. IC ACCESS ON THE LAC #20 SL PATENT AND FLUSHING. BED IN LOWEST LOCKED POSITION, CALL LIGHT WITHIN REACH AT ALL TIMES, WILL CONTINUE TO MONITOR.
[2018-07-31 20:00] VITALS: BP 97/54
[2018-07-31] MEDS: SENNOSIDES 8.6 MG TABLET PO SCH (21:25)
[2018-07-31] MEDS: MIRTAZAPINE 15 MG TABLET PO SCH (21:25)
[2018-08-01 03:47] VITALS: BP 97/54
--- NOTE | 2018-08-01 06:27 | NUR ---
RN MS CLOSING NOTES PT REMAINS IN BED, SLEEPING EASILY AROUSED TO TOUCH AND NAME CALL. BREATHING EVEN AND UNLABORED ON RA. IN NO APPARENT DISTRESS AT THE MOMENT. IV ACCESS ON THE LAC #20 SL PATENT AND FLUSHING. BED IN LOWEST LOCKED POSITION, CALL LIGHT WITHIN REACH AT ALL TIMES, WILL ENDORSE TO DAY NURSE FOR YANELIS
--- NOTE | 2018-08-01 07:25 | NUR ---
MS/RN NOTE THE PATIENT ALERT AND ORIENTED X2. IN ROOM AIR AND DENIES SOB. RESPIRATION REGULAR AND UNLABORED. DENIES PAIN. LAC G 20 PATENT AND SALINE LOCKED. BED LOW AND LOCKED. SIDE RAILS UP X3. CALL LIGHT WITHIN REACH. WILL CONTINUE TO MONITOR.
[2018-08-01 08:00] VITALS: BP 131/68
[2018-08-01] MEDS: ENSURE ENLIVE CHOC 237 ML CAN PO SCH (08:50)
[2018-08-01] MEDS: LACTULOSE 10 G/15 ML UDC (PYXIS) GT SCH (08:50)
[2018-08-01] MEDS: CHOLECALCIFEROL 1,000 UNIT TABLET (VIT D3) PO SCH (08:51)
[2018-08-01] MEDS: CALCIUM CARB 250MG /VITAMIN D 1 UDTAB PO SCH (08:51)
[2018-08-01] MEDS: DOCUSATE SODIUM 100 MG CAPSULE PO SCH (08:51)
[2018-08-01] MEDS: DIVALPROEX SODIUM 125 MG CAP.SPRINK PO SCH ×2 (08:51→13:14)
[2018-08-01] MEDS: MULTIVIT W/MINERALS 1 TAB TABLET PO SCH (08:51)
[2018-08-01 08:52] VITALS: BP 131/68
[2018-08-01] MEDS: LOSARTAN POTASSIUM 25 MG TABLET PO SCH (08:52)
[2018-08-01] MEDS: BENZTROPINE MESYLATE (1 MG) 1 MG TABLET PO SCH (08:52)
[2018-08-01] MEDS: METOPROLOL TARTRATE 25 MG TABLET PO SCH (08:52)
[2018-08-01] MEDS: NEOMY SULF/BACITRAC ZN/POLY 15 GM TUBE TP SCH (08:53)
[2018-08-01] MEDS: PROSOURCE / PROSTAT (PYXIS) 30 ML UDC PO SCH (09:44)
[2018-08-01] MEDS: PANTOPRAZOLE 40 MG VIAL IV SCH (11:58)
[2018-08-01] MEDS: HALOPERIDOL LACTATE 10 MG/5 ML UDC PO SCH (13:14)
[2018-08-01] MEDS: SOD FERRIC GLUC 125 MG in IV NS 0.9% 100 ML IV SCH (15:20)
--- NOTE | 2018-08-01 16:44 | NUR ---
MS/RN NOTE CALLED JORGE A ROBLEDO ([phone]) AND SHE STATED THAT SHE HAS THE PATIENT`S YELLOW COLOR NECKLESS.
--- NOTE | 2018-08-01 16:47 | NUR ---
MS/RN NOTE THE PATIENT ALERT AND ORIENTED X2. DENIES PAIN. RESPIRATION REGULAR AND UNLABORED. DENIES SOB. THE PATIENT IN NO APPARENT DISTRESS. THE PATIENT IS PICKED UP BY AMBULANCE. THE PATIENT IN STABLE CONDITION.
== END 2018-08-01 16:40 | DRG 280 ==
LOC: ER 13:29 → TELE 15:02 → MED 07-29 08:42
PROVIDERS: ADMIT Registered Nurse; ATTEND Nurse Practitioner Acute Care
DX: I21.A1 Myocardial infarction type 2 (principal); G93.41 Metabolic encephalopathy; I13.0 Hypertensive heart and chronic kidney disease with heart failure and stage 1 through stage 4 chronic kidney disease, or unspecified chronic kidney disease; S01.81XA Laceration without foreign body of other part of head, initial encounter; W01.0XXA Fall on same level from slipping, tripping and stumbling without subsequent striking against object, initial encounter; Y92.122 Bedroom in nursing home as the place of occurrence of the external cause; I48.91 Unspecified atrial fibrillation; S01.511A Laceration without foreign body of lip, initial encounter; Y93.01 Activity, walking, marching and hiking; E86.0 Dehydration; J44.9 Chronic obstructive pulmonary disease, unspecified; E78.5 Hyperlipidemia, unspecified; D64.9 Anemia, unspecified; E87.6 Hypokalemia; F03.90 Unspecified dementia, unspecified severity, without behavioral disturbance, psychotic disturbance, mood disturbance, and anxiety; F32.9 Major depressive disorder, single episode, unspecified; I25.10 Atherosclerotic heart disease of native coronary artery without angina pectoris; I25.2 Old myocardial infarction; K21.9 Gastro-esophageal reflux disease without esophagitis; M19.90 Unspecified osteoarthritis, unspecified site; Z98.890 Other specified postprocedural states; Z90.711 Acquired absence of uterus with remaining cervical stump; Z95.5 Presence of coronary angioplasty implant and graft; Z79.82 Long term (current) use of aspirin; Z79.899 Other long term (current) drug therapy; F41.9 Anxiety disorder, unspecified; R29.6 Repeated falls; S01.111A Laceration without foreign body of right eyelid and periocular area, initial encounter; Z79.01 Long term (current) use of anticoagulants; Z82.49 Family history of ischemic heart disease and other diseases of the circulatory system; I50.9 Heart failure, unspecified; N18.9 Chronic kidney disease, unspecified; M71.161 Other infective bursitis, right knee; L89.152 Pressure ulcer of sacral region, stage 2; R56.9 Unspecified convulsions; F25.0 Schizoaffective disorder, bipolar type
CPT/HCPCS: 36415; 70450-TC; 71045-TC; 73140-TC; 73562; 73610-TC; 80048-TC; 80061-TC; 80076-TC; 81000-TC; 82728-TC; 83540-TC; 83735-TC; 84100-TC; 84443-TC; 84484-TC; 85025-TC; 85730-TC; 86850-TC; 87081-TC; 87086-TC; 87186-TC; 93307-TC; 97110-TC; 97116-TC; 97530-TC; 97535-TC; A6403; C9113; G0378; J2916; J3490; J7030; J7050